=== PATIENT | female | born 1930 | race Caucasian/White ===

== ENCOUNTER 2018-08-12 10:25 | Inpatient (IN) | payer MEDICARE, MEDICAID ==
[~2018-08-12] VITALS: Ht 167.6 cm; Wt 68.0 kg
[~2018-08-12 10:25] MED LIST: ACCOLATE20 M1 ORAL; ALENDRONATE SOD70 MG ORAL; ASPIR 8181 MG ORAL; CALCIUM + VITA1 EAC1 PO; CARDIZEM CD120 MG ORAL; COLACE100 MG ORAL; DITROPAN XL10 MG ORAL; FERROUS SULFAT325 MG ORAL; HYDROCHLOROTHIA25 MG ORAL; NIFEDICAL XL60 MG ORAL; POTASSIUM 25 M25 ME1 PO; RISPERIDONE2 MG/2 ML PO; SIMVASTATIN40 MG ORAL
[2018-08-12 10:40] VITALS: BP 151/94
--- NOTE | 2018-08-12 10:55 | Emergency Room Report ---
History of Present Illness General Chief Complaint: General Complaint Source: EMS Present Illness HPI Patient sent in for G-tube insertion. Apparently her NG tube came out. She was placed on 2 L at some point. There is a history of COPD. The patient is unable to give a history. Patient last admitted in 2013. Discharge diagnoses: 1. Acute cholecystitis. 2. Obstructive jaundice, improved. 3. PVCs likely right ventricular outflow tract etiology. 4. Hypertensive heart disease. 5. Negative nuclear scan for cardiac ischemia. 6. History of cognitive impairment. 7. History of psychiatric disorder. Allergies: Coded Allergies: PENICILLINS (Unverified Allergy, Unknown, 12/20/13) Patient History Limited by: medical condition Past Medical History: see triage record, old chart reviewed Social History Narrative half-way facility Now: No Reviewed Nursing Documentation: PMH: Agreed; PSxH: Agreed Nursing Documentation-PMH Hx Cardiac Problems: Yes Hx Hypertension: Yes - hyperlipidemia Hx Pacemaker: No - ANEMIA, FALL, OSTEOPOROSIS, OBESITY Hx Asthma: Yes Hx COPD: Yes Hx Cancer: No History Of Psychiatric Problem: Yes - schizophrenia Hx Dementia: Yes Review of Systems All Other Systems: limited Physical Exam Vital Signs Date Time Temp Pulse Resp B/P (MAP) Pulse Ox O2 Delivery O2 Flow Rate FiO2 08/12/18 10:18 98.4 113 26 196/94 96 Room Air Sp02 EP Interpretation: reviewed, normal General Appearance: lethargic, Chronically Ill Head: normocephalic Eyes: bilateral eye normal inspection, bilateral eye PERRL ENT: moist mucus membranes Neck: supple Respiratory: respiratory distress - Mild, decreased breath sounds Cardiovascular #1: regular rate, rhythm, no edema Cardiovascular #2: 2+ radial (R) Gastrointestinal: normal inspection, non tender, no mass, non-distended, decreased bowel sounds Musculoskeletal: decreased range of motion Neurologic: motor weakness - Diffuse but possibly greater on the right, sensory deficit, other - Minimally responsive Psychiatric: other - Not respond to painful stimuli lethargy Skin: warm/dry, other - Right eyebrow ecchymoses which is billiverdin Medical Decision Making Diagnostic Impression: Primary Impression: Bilateral pneumonia Qualified Codes: J18.9 - Pneumonia, unspecified organism Additional Impressions: UTI (urinary tract infection) Qualified Codes: N39.0 - Urinary tract infection, site not specified NG tube failure Failure to thrive Qualified Codes: R62.7 - Adult failure to thrive ER Course Patient presented for evaluation for G-tube placement. However on her evaluation she is hypoxemic and dyspneic. Differential includes acute myocardial infarction, pulmonary embolus, pneumonia, exacerbation of COPD. She' ll be evaluated with EKG, chest x-ray and labs including blood cultures and lactate. She's a complex patient that she is unable to give a history. She'll be treated with breathing treatments, oxygen IV hydration. Depending on x-ray and laboratory she may need to have antibiotics started. EKG with ST. Chest x-ray with bilateral infiltrates -also increased markings right upper lobe. White count elevated. CMP unremarkable. Lactic acid normal. Urinalysis with pyuria. Slight improved mentation with breathing treatment. Antibiotics begun to cover pneumonia and urinary tract infection. Discussed with conservator. The only have jurisdiction over psychiatric medication use. Discussion with our social sciences lecturer and covering physician regarding this in relation to possibly placing gastrostomy tube. drug abuse worker states that 2 physicians could ascertain if medical emergency to perform gastrostomy tube placement. Patient admitted to medical floor. Dr. Scruggs covering for Dr. Mistry. He came and evaluated the patient in the emergency department. Laboratory Tests Test 08/12/18 10:29 08/12/18 10:45 08/12/18 11:00 White Blood Count 12.3 K/UL (4.8-10.8) H Red Blood Count 5.78 M/UL (4.20-5.40) H Hemoglobin 15.7 G/DL (12.0-16.0) Hematocrit 47.1 % (37.0-47.0) H Mean Corpuscular Volume 81 FL (80-99) Mean Corpuscular Hemoglobin 27.2 PG (27.0-31.0) Mean Corpuscular Hemoglobin Concent 33.4 G/DL (32.0-36.0) Red Cell Distribution Width 13.3 % (11.6-14.8) Platelet Count 239 K/UL (150-450) Mean Platelet Volume 9.9 FL (6.5-10.1) Neutrophils (%) (Auto) % (45.0-75.0) Lymphocytes (%) (Auto) % (20.0-45.0) Monocytes (%) (Auto) % (1.0-10.0) Eosinophils (%) (Auto) % (0.0-3.0) Basophils (%) (Auto) % (0.0-2.0) Differential Total Cells Counted 100 Neutrophils % (Manual) 81 % (45-75) H Lymphocytes % (Manual) 15 % (20-45) L Monocytes % (Manual) 4 % (1-10) Eosinophils % (Manual) 0 % (0-3) Basophils % (Manual) 0 % (0-2) Band Neutrophils 0 % (0-8) Platelet Estimate Adequate Platelet Morphology Normal Red Blood Cell Morphology Normal Prothrombin Time 10.7 SEC (9.30-11.50) Prothrombin Time INR 1.0 (0.9-1.1) PTT 27 SEC (23-33) Sodium Level 138 MMOL/L (136-145) Potassium Level 3.8 MMOL/L (3.5-5.1) Chloride Level 98 MMOL/L (98-107) Carbon Dioxide Level 30 MMOL/L (21-32) Anion Gap 10 mmol/L (5-15) Blood Urea Nitrogen 18 mg/dL (7-18) Creatinine 0.6 MG/DL (0.55-1.30) Estimate Glomerular Filtration Rate mL/min (>60) Glucose Level 151 MG/DL (74-106) H Lactic Acid Level 1.30 mmol/L (0.4-2.0) Calcium Level 9.9 MG/DL (8.5-10.1) Total Bilirubin 0.6 MG/DL (0.2-1.0) Aspartate Amino Transferase (AST) 25 U/L (15-37) Alanine Aminotransferase (ALT) 20 U/L (12-78) Alkaline Phosphatase 106 U/L (46-116) Total Creatine Kinase 233 U/L (26-308) Troponin I 0.000 ng/mL (0.000-0.056) Pro-B-Type Natriuretic Peptide 653 pg/mL (0-125) H Total Protein 8.9 G/DL (6.4-8.2) H Albumin 3.5 G/DL (3.4-5.0) Globulin 5.4 g/dL Albumin/Globulin Ratio 0.6 (1.0-2.7) L Urine Color Yellow Urine Appearance Cloudy Urine pH 6 (4.5-8.0) Urine Specific [place] 1.020 (1.005-1.035) Urine Protein 3+ (NEGATIVE) H Urine Glucose (UA) Negative (NEGATIVE) Urine Ketones 3+ (NEGATIVE) H Urine Blood 2+ (NEGATIVE) H Urine Nitrite Negative (NEGATIVE) Urine Bilirubin Negative (NEGATIVE) Urine Urobilinogen 1 MG/DL (0.0-1.0) H Urine Leukocyte Esterase 1+ (NEGATIVE) H Urine RBC 2-4 /HPF (0 - 2) H Urine WBC 5-10 /HPF (0 - 2) H Urine Squamous Epithelial Cells Few /LPF (NONE/OCC) Urine Bacteria Many /HPF (NONE) H EKG Diagnostic Results Rate: tachycardiac ST Segments: no acute changes Rhythm Strip Diag. Results EP Interpretation: yes Rhythm: no PVC's, no ectopy, other - Sinus tachycardia Chest X-Ray Diagnostic Results Chest X-Ray Diagnostic Results : Chest X-Ray Ordered: Yes # of Views/Limited/Complete: 1 View Indication: Shortness of Breath EP Interpretation: Yes Interpretation: no effusion, no pneumothorax, other - bilat infiltrates Impression: Other Electronically Signed by: Electronically signed by Daniel Zafar MD Last Vital Signs Date Time Temp Pulse Resp B/P (MAP) Pulse Ox O2 Delivery O2 Flow Rate FiO2 08/12/18 17:52 179/88 08/12/18 16:40 Nasal Cannula 1.0 08/12/18 16:30 98.2 107 20 95 08/12/18 11:08 28 Status: improved Disposition: ADMITTED INPATIENT Condition: Serious Referrals: Reinaldo Mistry MD (PCP) Daniel Zafar MD Aug 12, 2018 10:55
[2018-08-12] MEDS ORDERED: Albuterol ud Inhalation HHN ONE (11:00)
[2018-08-12] MEDS ORDERED: Ipratropium 0.02% Inh Soln 2.5ml UD HHN ONE (11:00)
[2018-08-12 11:24] LABS: ANION GAP 10 mmol/L (5-15); BLOOD UREA NITROGEN 18 mg/dL (7-18); CALCIUM 9.9 MG/DL (8.5-10.1); CARBON DIOXIDE 30 MMOL/L (21-32); CHLORIDE 98 MMOL/L (98-107); CREATININE 0.6 MG/DL (0.55-1.30); POTASSIUM 3.8 MMOL/L (3.5-5.1); SODIUM 138 MMOL/L (136-145)
[2018-08-12 11:34] LABS: ALANINE AMINOTRANSFERASE 20 U/L (12-78); ALBUMIN 3.5 G/DL (3.4-5.0); ALBUMIN/GLOBULIN RATIO 0.6 (1.0-2.7); ALKALINE PHOSPHATASE 106 U/L (46-116); ASPARTATE AMINO TRANSFERASE 25 U/L (15-37); BILIRUBIN,TOTAL 0.6 MG/DL (0.2-1.0); CREATINE KINASE 233 U/L (26-308)
[2018-08-12 11:41] LABS: HEMATOCRIT 47.1 % (37.0-47.0); HEMOGLOBIN 15.7 G/DL (12.0-16.0); MEAN CORPUSCULAR VOLUME 81 FL (80-99); PLATELET COUNT 239 K/UL (150-450); RED BLOOD COUNT 5.78 M/UL (4.20-5.40); RED CELL DISTRIBUTION WIDTH 13.3 % (11.6-14.8); WHITE BLOOD COUNT 12.3 K/UL (4.8-10.8)
[2018-08-12] MEDS ORDERED: Cefepime HCl 1 GM in D5W 55 ML IVPB ONE (11:45)
[2018-08-12 12:10] LABS: APPEARANCE,URINE CLOUDY; BILIRUBIN, URINE NEGATIVE (NEGATIVE); GLUCOSE, URINE (UA) NEGATIVE (NEGATIVE); KETONES,URINE 3+ (NEGATIVE); LEUKOCYTE ESTERASE ,URINE 1+ (NEGATIVE); NITRITE,URINE NEGATIVE (NEGATIVE); PH,URINE 6 (4.5-8.0); PROTEIN,URINE 3+ (NEGATIVE); UROBILINOGEN,URINE 1 MG/DL (0.0-1.0)
[2018-08-12 12:11] LABS: COLOR,URINE YELLOW
[2018-08-12 12:30] VITALS: BP 178/81
--- NOTE | 2018-08-12 14:13 | Diagnostic Imaging Report ---
Indication: Shortness of breath Technique: One view of the chest Comparison: 12/20/2013 Findings: The heart is mildly enlarged. There is bilateral interstitial edema. There are also patchy focal airspace opacities. Opacity in the left lung base most likely represents some focal consolidation, but mass lesion is also possible. The pleural spaces are grossly clear. Surgical clips are seen in the right upper quadrant. Somewhat distended colon is noted There are degenerative changes of the bilateral shoulders. There is extensive contour abnormality of both humeral head and necks; uncertain as to whether due to degenerative remodeling, prior trauma, or both Impression: Cardiomegaly Bilateral interstitial edema. There are also patchy airspace opacities. Opacity in the left upper lobe probably represents focal infiltrate, but underlying mass lesion also possible and follow-up to resolution is recommended Findings discussed by phone with Dr. Zafar in the emergency room at the time of interpretation
[2018-08-12 15:00] VITALS: BP 158/79
[2018-08-12] MEDS ORDERED: Albuterol/Ipratropium 3ml neb HHN PRN (15:00)
--- NOTE | 2018-08-12 16:00 | Infectious Diseases Prog Note ---
Assessment/Plan Assessment/Plan Full consult dictated: A) 1) pneumonia, aspiration risk, ? HCAP risk, ? CAP with bilateral process 2) possible uti, + ua 3) sepsis, leukocytosis, sirs + , ams 4) pmh noted 5) allergies - nkda P) 1) levofloxacin and cefepime, add flagyl with aspiration risk factors 2) check cultures, labs and chest x-ray, check serology for mycoplasma and legionella 3) d/w Dr. Lemus 4) thank you Subjective Allergies: Coded Allergies: PENICILLINS (Unverified Allergy, Unknown, 12/20/13) Objective Vital Signs Last 24 Hour Vital Signs Date Time Temp Pulse Resp B/P (MAP) Pulse Ox O2 Delivery O2 Flow Rate FiO2 08/12/18 12:30 98.5 118 22 178/81 97 Nasal Cannula 1.0 08/12/18 11:08 112 20 99 Nasal Cannula 2.0 28 08/12/18 11:02 115 22 Nasal Cannula 2.0 28 08/12/18 10:58 116 22 99 Nasal Cannula 2.0 28 08/12/18 10:40 98.4 116 23 151/94 97 Room Air 08/12/18 10:28 113 26 Room Air 08/12/18 10:18 98.4 113 26 196/94 96 Room Air Height (Feet): 5 Height (Inches): 6.00 Weight (Pounds): 150 Microbiology Date/Time Source Procedure Growth Status 08/12/18 11:00 Rectum Received Laboratory Tests Test 08/12/18 10:29 08/12/18 10:45 08/12/18 11:00 White Blood Count 12.3 K/UL (4.8-10.8) H Red Blood Count 5.78 M/UL (4.20-5.40) H Hemoglobin 15.7 G/DL (12.0-16.0) Hematocrit 47.1 % (37.0-47.0) H Mean Corpuscular Volume 81 FL (80-99) Mean Corpuscular Hemoglobin 27.2 PG (27.0-31.0) Mean Corpuscular Hemoglobin Concent 33.4 G/DL (32.0-36.0) Red Cell Distribution Width 13.3 % (11.6-14.8) Platelet Count 239 K/UL (150-450) Mean Platelet Volume 9.9 FL (6.5-10.1) Neutrophils (%) (Auto) % (45.0-75.0) Lymphocytes (%) (Auto) % (20.0-45.0) Monocytes (%) (Auto) % (1.0-10.0) Eosinophils (%) (Auto) % (0.0-3.0) Basophils (%) (Auto) % (0.0-2.0) Differential Total Cells Counted 100 Neutrophils % (Manual) 81 % (45-75) H Lymphocytes % (Manual) 15 % (20-45) L Monocytes % (Manual) 4 % (1-10) Eosinophils % (Manual) 0 % (0-3) Basophils % (Manual) 0 % (0-2) Band Neutrophils 0 % (0-8) Platelet Estimate Adequate Platelet Morphology Normal Red Blood Cell Morphology Normal Prothrombin Time 10.7 SEC (9.30-11.50) Prothromb Time International Ratio 1.0 (0.9-1.1) Activated Partial Thromboplast Time 27 SEC (23-33) Sodium Level 138 MMOL/L (136-145) Potassium Level 3.8 MMOL/L (3.5-5.1) Chloride Level 98 MMOL/L (98-107) Carbon Dioxide Level 30 MMOL/L (21-32) Anion Gap 10 mmol/L (5-15) Blood Urea Nitrogen 18 mg/dL (7-18) Creatinine 0.6 MG/DL (0.55-1.30) Estimat Glomerular Filtration Rate mL/min (>60) Glucose Level 151 MG/DL (74-106) H Lactic Acid Level 1.30 mmol/L (0.4-2.0) Calcium Level 9.9 MG/DL (8.5-10.1) Total Bilirubin 0.6 MG/DL (0.2-1.0) Aspartate Amino Transf (AST/SGOT) 25 U/L (15-37) Alanine Aminotransferase (ALT/SGPT) 20 U/L (12-78) Alkaline Phosphatase 106 U/L (46-116) Total Creatine Kinase 233 U/L (26-308) Troponin I 0.000 ng/mL (0.000-0.056) Pro-B-Type Natriuretic Peptide 653 pg/mL (0-125) H Total Protein 8.9 G/DL (6.4-8.2) H Albumin 3.5 G/DL (3.4-5.0) Globulin 5.4 g/dL Albumin/Globulin Ratio 0.6 (1.0-2.7) L Urine Color Yellow Urine Appearance Cloudy Urine pH 6 (4.5-8.0) Urine Specific [place] 1.020 (1.005-1.035) Urine Protein 3+ (NEGATIVE) H Urine Glucose (UA) Negative (NEGATIVE) Urine Ketones 3+ (NEGATIVE) H Urine Blood 2+ (NEGATIVE) H Urine Nitrite Negative (NEGATIVE) Urine Bilirubin Negative (NEGATIVE) Urine Urobilinogen 1 MG/DL (0.0-1.0) H Urine Leukocyte Esterase 1+ (NEGATIVE) H Urine RBC 2-4 /HPF (0 - 2) H Urine WBC 5-10 /HPF (0 - 2) H Urine Squamous Epithelial Cells Few /LPF (NONE/OCC) Urine Bacteria Many /HPF (NONE) H Current Medications Medications (Trade) Dose Ordered Sig/Eveline Route PRN Reason Start Time Stop Time Status Last Admin Dose Admin Albuterol/ Ipratropium (Albuterol/ Ipratropium) 3 ml QIDPRN PRN HHN Shortness of Breath 08/12/18 15:00 08/17/18 14:59 Dextrose (Dextrose 50%) 25 ml Q30M PRN IV Hypoglycemia 08/12/18 15:00 09/11/18 14:59 Dextrose (Dextrose 50%) 50 ml Q30M PRN IV Hypoglycemia 08/12/18 15:00 09/11/18 14:59 Dextrose/Sodium Chloride 1,000 ml @ 50 mls/hr Q20H IV 08/12/18 15:56 09/11/18 15:55 Enoxaparin Sodium (Lovenox) 40 mg DAILY SUBQ 08/13/18 09:00 09/12/18 08:59 Metoprolol Tartrate (Lopressor) 5 mg Q4HR IVP 08/12/18 17:00 09/11/18 16:59 UNV Sodium Chloride 1,000 ml @ 300 mls/hr Q3H20M IV 08/12/18 10:30 09/11/18 10:29 08/12/18 14:42 Jarrod Lopes MD Aug 12, 2018 16:00
[2018-08-12 16:30] VITALS: BP 179/88
[2018-08-12] MEDS ORDERED: Metoprolol 5mg/5ml Inj IVP SCH (17:00)
[2018-08-12] MEDS: Enalaprilat 2.5mg/2ml Inj IV SCH (17:52)
[2018-08-12] MEDS: D5 1/2NS 1,000 ML IV SCH (17:53)
[2018-08-12 20:00] VITALS: BP 162/76
[2018-08-12] MEDS ORDERED: Cefepime HCl 1 GM in D5W 55 ML IVPB SCH (21:00)
--- NOTE | 2018-08-12 23:15 | History and Physical Report ---
DATE OF ADMISSION: 08/12/2018 REASON FOR ADMISSION: 1. Pneumonia. 2. Urinary tract infection. 3. Acute encephalopathy. HISTORY OF PRESENT ILLNESS: The patient is an 87-year-old female, who had presented to the emergency room for question of G-tube insertion. Apparently, the patient had an NG-tube that had been placed and been self removed. The patient is not answering any questions. Emergency room physician has reached out to the conservator to address the possible insertion of a G-tube. She has Full Code at this time. In the emergency room, the patient is noted to have a urinary tract infection, chronic obstructive pulmonary disease exacerbation, and bilateral pneumonia. No further history could be obtained as the patient is noncommunicative. PAST MEDICAL HISTORY: 1. Osteoporosis. 2. Hypertension. 3. Bladder dysfunction. 4. Hyperlipidemia. 5. Schizophrenia. 6. COPD. ALLERGIES: Penicillin. FAMILY HISTORY: Positive for hypertension. PAST SURGICAL HISTORY: Unclear. REVIEW OF SYSTEMS: Cannot obtain as the patient is not verbalizing to any questions. LABORATORY DATA: Laboratories dated 06/14/2018, positive urinary tract infection. White count 12.3, hemoglobin 15.7, and platelet count 239,000. Sodium 138, potassium 3.8, BUN 18, creatinine 0.6, and glucose 151. PHYSICAL EXAM: VITAL SIGNS: Blood pressure 178/81, pulse ox 97, respiratory rate 22, pulse 118, and temperature 98.5. GENERAL: The patient is awake, slightly agitated, and not very communicative. HEENT: Extraocular muscles intact. No lymphadenopathy noted. CARDIOVASCULAR: S1, S2. No rubs or gallops. PULMONARY: Diffuse upper airway rhonchi with basilar rales. ABDOMEN: Nondistended and nontender. EXTREMITIES: No overt edema noted. ASSESSMENT AND PLAN: 1. Sepsis secondary to urinary tract infection and pneumonia. The patient had received cefepime and Levaquin in the emergency room. Infectious Disease has been consulted for further evaluation and management of antibiotic therapy going forward. 2. Pneumonia and urinary tract infection. Continue antibiotic course therapy with Levaquin and cefepime until evaluated by Infectious Disease. 3. Hypertension. At this time, the patient has no oral access to any medications. NG-tube had been withdrawn. pit worker power shovel has been contacted to address the possibility of a G-tube placement. At this time, we will hydrate the patient and use intravenous medications. 4. DVT prophylaxis with Lovenox subcutaneous. 5. The patient is Full Code. At this time, conservator is trying to be reached to address G-tube, possibility of placement. At this time, we will consult Gastroenterology for G-tube once consent has been given. Cory Lemus MD DR: ISAMAR JOB#: [id number] CC:
[2018-08-13] VITALS: BP 140/58
[2018-08-13] MEDS: Cefepime HCl 2 GM in D5W 55 ML IV SCH ×2 (00:07→11:36)
--- NOTE | 2018-08-13 02:00 | Consultation ---
DATE OF CONSULTATION: 08/12/2018 INFECTIOUS DISEASE CONSULTATION CONSULTING PHYSICIAN: Jarrod Swanson M.D. ATTENDING PHYSICIAN: Reinaldo Mistry M.D. REFERRING PHYSICIAN: Cory Lemus M.D. REASON FOR CONSULTATION: Pneumonia, possible sepsis, leukocytosis, and possible UTI. CHIEF COMPLAINT: The patient's chief complaint coming in to the hospital is failure to thrive. HISTORY OF PRESENT ILLNESS: This is an 87-year-old female, who comes in to [facility] with failure to thrive. The patient is a poor historian. She has history of dementia. It looks like she came in with removal of feeding tube. Then, she comes in for G-tube insertion because of the failure to thrive. Workup shows that she has a pneumonia and also looks like urinary tract infection with elevated white count and possible sepsis. She does have positive SIRS criteria with elevated heart rate and respiratory rate and altered mental status. Infectious Disease consultation was requested for antibiotic management. She was given Levaquin and cefepime in the emergency room where she tolerated the cefepime despite her penicillin allergy. Cultures at this time pending. Imaging was noted. Case was discussed with Dr. Lemus. Infectious Disease consultation was requested for antibiotic management in this patient. The patient was continued on antibiotics, cefepime and Levaquin and I have also added Flagyl. MAR was noted. Orders were noted. Notes and records were reviewed. Case discussed with the RN also. REVIEW OF SYSTEMS: CONSTITUTIONAL: The patient is a very poor historian/nonverbal. I do not see a central line. No Real. HEAD AND NECK: Limited. Cannot really be assessed. CARDIAC: She has no pressors. She has tachycardia. GENITOURINARY: She has no Real. PULMONARY: She has cough and congestion. No significant secretions noted. GASTROINTESTINAL: No nausea, vomiting, or diarrhea. SKIN: No rash noted. EXTREMITY: Could not assess. NEUROLOGIC: No seizures. She is otherwise lethargic. Poorly responsive. Nonverbal. NEUROLOGIC: Generalized weakness. No fevers or pressors currently. Review of systems is otherwise limited. PAST MEDICAL HISTORY: The patient's past medical history includes the following. The patient has past medical history of failure to thrive. She has a history of feeding tube. She has history of failure to thrive. She also has other past medical history of cardiac disease. She has history of hyperlipidemia or dyslipidemia. She has history of asthma, history of chronic obstructive pulmonary disease, history of schizophrenia, history of dementia, history of falls, osteoporosis, and obesity. History of hypertension and hyperlipidemia. No history of diabetes mentioned. MEDICATIONS: Upon reviewing the MAR, she is on the following medications. She is on Levaquin and cefepime. I have added Flagyl. She is on metoprolol. She is on albuterol. She is on IV fluids. Outside medications were noted and reconciliated. She is on diltiazem, aspirin, alendronate, ferrous sulfate, hydrochlorothiazide, potassium, risperidone, oxybutynin, simvastatin, and Accolate. ALLERGIES: Include penicillin. She tolerates cefepime and cephalosporins. FAMILY HISTORY: Noncontributory. There is no mention of exposure to tuberculosis or cancer. SOCIAL HISTORY: Negative for smoking, alcohol, or drug abuse. PHYSICAL EXAMINATION: VITAL SIGNS: Temperature is 98.5, pulse rate is 118, respiratory rate as high as 26, blood pressure 178/81, and saturation 97% on 1 liter nasal cannula. GENERAL: Weak and lethargic. HEAD AND NECK: Oral exam, no thrush. Eye exam, no icterus. Normocephalic. Neck is supple. No JVD. HEART: Regular. No obvious gallop or murmur. Tachycardic. ABDOMEN: Soft. Positive bowel sounds. Really could not assess tenderness. LUNGS: Bilateral rhonchi, rales, and crackles. SKIN: No rash. MUSCULOSKELETAL: No effusions. Legs are without cellulitis. PERIPHERAL VASCULAR: No cyanosis. GENITOURINARY: I do not see a Real. LINES: Line sites without phlebitis. I do not see a central line. NEUROLOGIC: Generalized weakness. Poorly responsive. LABORATORY AND DIAGNOSTIC DATA: Laboratory data is as follows. White count 12.3 and hemoglobin 15.7. Creatinine is 0.6. Urine had 1+ leukocyte esterase, 5 to 10 white blood cells, and many bacteria. CULTURES: Include sputum and urine and blood are pending. I have ordered mycoplasma and Legionella titers. IMAGING: Chest x-ray shows the following: It was noted and reviewed. It shows patchy airspace opacities, opacity in the left upper lobe, probably is a focal infiltrate. She also has bilateral interstitial edema. ASSESSMENT/PLAN: 1. The patient looks like she has pneumonia with possible urinary tract infection and also elevated white count, respiratory rate, heart rate, and SIRS criteria with possible sepsis, and altered mental status. The pneumonia also appear to be a bilateral process, however, she has high risk for aspiration pneumonia and also healthcare-acquired pneumonia because she has a history of dementia and comes from an ECF. At this time, I would continue the cefepime and Levaquin. This will have excellent gram-negative coverage and also has community-acquired pneumonia coverage. There is atypical pathogens involved such as Legionella mycoplasma. In addition, I would add Flagyl to the cefepime and Levaquin for aspiration coverage and anaerobic coverage. Continue antibiotics cefepime, Levaquin, and Flagyl. Check urine culture, blood cultures, and sputum culture. Followup laboratories and chest x-ray. Continue treatment for pneumonia, sepsis, and urinary tract infection pending final work. 2. The patient has history of cardiac disease. It is unclear what type it is. She is tachycardic. 3. The patient has history of hypertension. Blood pressure treatment per Dr. Lemus. 4. Hyperlipidemia or dyslipidemia. 5. Anemia. 6. Falls. 7. Osteoporosis. 8. Obesity. 9. Asthma. 10. COPD. 11. Schizophrenia. 12. Dementia. 13. Aspiration risk. 14. Tachycardia. 15. Past medical history is as noted. 16. Allergies to penicillin. Tolerates cephalosporins. 17. Social history is negative. 18. Family history is noncontributory. 19. MAR was noted. 20. Case was discussed with RN. 21. Case was discussed with Dr. Lemus. 22. Continue treatment per primary consultants. 23. Notes and records were noted. 24. Orders were entered. Jarrod Lopes M.D. DR: CARRIE JOB#: [id number] CC:
[2018-08-13 04:00] VITALS: BP 135/71
[2018-08-13] MEDS: Enalaprilat 2.5mg/2ml Inj IV SCH ×4 (06:00→17:39)
[2018-08-13 07:36] LABS: BASOPHILS % (AUTO) 1.3 % (0.0-2.0); EOSINOPHILS % (AUTO) 2.1 % (0.0-3.0); HEMATOCRIT 40.4 % (37.0-47.0); HEMOGLOBIN 13.4 G/DL (12.0-16.0); LYMPHOCYTES % (AUTO) 10.3 % (20.0-45.0); MEAN CORPUSCULAR VOLUME 83 FL (80-99); MONOCYTES % (AUTO) 8.4 % (1.0-10.0); PLATELET COUNT 177 K/UL (150-450); RED BLOOD COUNT 4.86 M/UL (4.20-5.40); RED CELL DISTRIBUTION WIDTH 13.8 % (11.6-14.8); WHITE BLOOD COUNT 9.2 K/UL (4.8-10.8)
--- NOTE | 2018-08-13 07:40 | Nephrology Progress Note ---
Assessment/Plan Assessment/Plan A/P 1) Sepsis- UIT/PNA - WBC improved - Abx per ID 2) FTT- awaiting GTube on Wednesday 3) DVT Prophylaxsis with lovenox 4) HTN - IV enalapril Subjective Date patient seen: Aug 13, 2018 Time patient seen: 07:38 ROS Limited/Unobtainable: Yes Allergies: Coded Allergies: PENICILLINS (Unverified Allergy, Unknown, 12/20/13) Subjective Patient awake, more alert, nonverbal Objective Last 24 Hour Vital Signs Date Time Temp Pulse Resp B/P (MAP) Pulse Ox O2 Delivery O2 Flow Rate FiO2 08/13/18 06:00 135/71 08/13/18 00:00 98.3 79 20 140/58 (85) 98 08/13/18 00:00 140/58 08/12/18 21:00 Nasal Cannula 2.0 08/12/18 20:00 98.5 98 20 162/76 (104) 97 08/12/18 17:52 179/88 08/12/18 16:40 Nasal Cannula 1.0 08/12/18 16:30 98.2 107 20 179/88 (118) 95 08/12/18 16:14 98.4 19 22 152/80 100 Nasal Cannula 1.0 08/12/18 15:00 98.1 108 20 158/79 98 Nasal Cannula 1.0 08/12/18 12:30 98.5 118 22 178/81 97 Nasal Cannula 1.0 08/12/18 11:08 112 20 99 Nasal Cannula 2.0 28 08/12/18 11:02 115 22 Nasal Cannula 2.0 28 08/12/18 10:58 116 22 99 Nasal Cannula 2.0 28 08/12/18 10:40 98.4 116 23 151/94 97 Room Air 08/12/18 10:28 113 26 Room Air 08/12/18 10:18 98.4 113 26 196/94 96 Room Air Intake and Output 08/12/18 08/13/18 18:59 06:59 Intake Total 2355 ml Output Total 150 ml Balance 2205 ml Intake IV Total 2355 ml Output Urine Total 150 ml # Voids 1 # Bowel Movements 1 1 Laboratory Tests 08/12/18 10:29: White Blood Count 12.3H, Red Blood Count 5.78H, Hemoglobin 15.7, Hematocrit 47.1H, Mean Corpuscular Volume 81, Mean Corpuscular Hemoglobin 27.2, Mean Corpuscular Hemoglobin Concent 33.4, Red Cell Distribution Width 13.3, Platelet Count 239, Mean Platelet Volume 9.9, Neutrophils (%) (Auto) , Lymphocytes (%) ( Auto) , Monocytes (%) (Auto) , Eosinophils (%) (Auto) , Basophils (%) (Auto) , Differential Total Cells Counted 100, Neutrophils % (Manual) 81H, Lymphocytes % (Manual) 15L, Monocytes % (Manual) 4, Eosinophils % (Manual) 0, Basophils % ( Manual) 0, Band Neutrophils 0, Platelet Estimate Adequate, Platelet Morphology Normal, Red Blood Cell Morphology Normal 08/12/18 10:45: Prothrombin Time 10.7, Prothromb Time International Ratio 1.0, Activated Partial Thromboplast Time 27, Sodium Level 138, Potassium Level 3.8, Chloride Level 98, Carbon Dioxide Level 30, Anion Gap 10, Blood Urea Nitrogen 18, Creatinine 0.6, Estimat Glomerular Filtration Rate , Glucose Level 151H, Lactic Acid Level 1.30, Calcium Level 9.9, Total Bilirubin 0.6, Aspartate Amino Transf (AST/SGOT) 25, Alanine Aminotransferase (ALT/SGPT) 20, Alkaline Phosphatase 106 , Total Creatine Kinase 233, Troponin I 0.000, Pro-B-Type Natriuretic Peptide 653H, Total Protein 8.9H, Albumin 3.5, Globulin 5.4, Albumin/Globulin Ratio 0.6L 08/12/18 11:00: Urine Color Yellow, Urine Appearance Cloudy, Urine pH 6, Urine Specific [place] 1.020, Urine Protein 3+H, Urine Glucose (UA) Negative, Urine Ketones 3+H, Urine Blood 2+H, Urine Nitrite Negative, Urine Bilirubin Negative, Urine Urobilinogen 1H, Urine Leukocyte Esterase 1+H, Urine RBC 2-4H, Urine WBC 5-10H, Urine Squamous Epithelial Cells Few, Urine Bacteria ManyH 08/12/18 11:29: Mycoplasma pneumoniae IgG Antibody [Pending], Mycoplasma pneumoniae IgM Ab Titer [Pending] 08/12/18 18:30: Urine Legionella Antigen [Pending] 08/13/18 05:35: White Blood Count 9.2, Red Blood Count 4.86, Hemoglobin 13.4, Hematocrit 40.4, Mean Corpuscular Volume 83, Mean Corpuscular Hemoglobin 27.6, Mean Corpuscular Hemoglobin Concent 33.2, Red Cell Distribution Width 13.8, Platelet Count 177, Mean Platelet Volume 9.6, Neutrophils (%) (Auto) 78.0H, Lymphocytes (%) (Auto) 10.3L, Monocytes (%) (Auto) 8.4, Eosinophils (%) (Auto) 2.1, Basophils (%) (Auto ) 1.3, Sodium Level [Pending], Potassium Level [Pending], Chloride Level [ Pending], Carbon Dioxide Level [Pending], Blood Urea Nitrogen [Pending], Creatinine [Pending], Estimat Glomerular Filtration Rate [Pending], Glucose Level [Pending], Calcium Level [Pending] Height (Feet): 5 Height (Inches): 6.00 Weight (Pounds): 150 General Appearance: agitated EENT: normal ENT inspection Neck: normal alignment, supple Cardiovascular: normal rate, regular rhythm Respiratory/Chest: crackles/rales Abdomen: non tender, soft Edema: no edema noted Arm (L), no edema noted Arm (R), no edema noted Leg (L), no edema noted Leg (R), no edema noted Pedal (L), no edema noted Pedal (R), no edema noted Generalized Cory Lemus MD Aug 13, 2018 07:40
[2018-08-13 08:00] VITALS: BP 138/77
[2018-08-13 08:12] LABS: ANION GAP 9 mmol/L (5-15); BLOOD UREA NITROGEN 12 mg/dL (7-18); CALCIUM 8.5 MG/DL (8.5-10.1); CARBON DIOXIDE 28 MMOL/L (21-32); CHLORIDE 102 MMOL/L (98-107); CREATININE 0.6 MG/DL (0.55-1.30); POTASSIUM 3.5 MMOL/L (3.5-5.1); SODIUM 139 MMOL/L (136-145)
[2018-08-13] MEDS: Enoxaparin 40mg Inj SUBQ SCH (08:37)
--- NOTE | 2018-08-13 09:06 | Diagnostic Imaging Report ---
EXAM: XR Chest, 1 View. CLINICAL HISTORY: Infection TECHNIQUE: Frontal view of the chest. COMPARISON: 08/12/18 at 1128 hrs. FINDINGS: Lungs: Again seen are prominent interstitial markings throughout both lungs, likely associated with interstitial edema. This appears unchanged to slightly improved since the prior exam performed yesterday. No definite airspace consolidation. Pleural spaces: No significant pleural effusions. No evidence of pneumothorax. Heart: Cardiac silhouette is within normal limits. Mediastinum: No mediastinal widening or shift. Bones: No acute fracture. IMPRESSION: Pulmonary edema, unchanged to slightly improved. No airspace consolidation or pneumothorax.
[2018-08-13] MEDS ORDERED: D5 1/2NS 1000ml IV ONE (10:46)
[2018-08-13] MEDS: NovoLOG Insulin Flexpen SUBQ SCH ×3 (11:35→21:00)
[2018-08-13] MEDS: D5 1/2NS 1,000 ML IV SCH (11:36)
[2018-08-13 12:00] VITALS: BP_SYST 140; BP_SYST 159; BP_DIAS 78; BP_DIAS 86
--- NOTE | 2018-08-13 12:45 | Consultation ---
DATE OF CONSULTATION: 08/13/2018 PULMONARY CONSULTATION CONSULTING PHYSICIAN: Babar Sevilla M.D. REFERRING PHYSICIAN: Cory Lemus M.D. REASON FOR CONSULT: Pneumonia. HISTORY OF PRESENT ILLNESS: This is an 87-year-old female, who came to the hospital for need of a G-tube insertion. The patient apparently had an NG that had been self removed. The patient at this time is not able to answer any question. Her workup is also notable for pneumonia as well as UTI. PAST HISTORY: Osteoporosis, hypertension, thyroid dysfunction, hyperlipidemia, COPD, and schizophrenia. ALLERGIES: Penicillin. PAST SURGICAL HISTORY: None known. REVIEW OF SYSTEMS: Not obtainable. PHYSICAL EXAMINATION: GENERAL: Reveals elderly female, poorly responsive. HEENT: Unremarkable. CHEST: Clear breath sounds bilaterally with few basilar crackles. ABDOMEN: Soft. EXTREMITIES: There is no edema. NEUROLOGIC: Nonfocal. LABORATORY DATA: Lab testing shows white count 12.3, hemoglobin 11.2. Chemistries are normal. Urinalysis shows 5 to 10 wbc. Coags are negative. Serologies are negative. X-ray of the chest was obtained, which showed versus consolidation bilaterally. IMPRESSION: 1. UTI. 2. Doubt pneumonia, given equivocal findings on imaging studies. 3. Hypertension. DISCUSSION: Agree with admission and care. The patient is currently on antibiotic therapy with cefepime with which I concur. ID was also consulted on her. I do not suspect pneumonia given lack of hypoxemia or clinical symptoms as well as fairly unremarkable chest x-ray. 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 Babar Sevilla M.D. DR: ONESIMO JOB#: [id number] CC:
--- NOTE | 2018-08-13 13:30 | Consultation ---
DATE OF CONSULTATION: 08/13/2018 PULMONARY CONSULTATION CONSULTING PHYSICIAN: Babar Sevilla M.D. REFERRING PHYSICIAN: Cory Lemus M.D. REASON FOR CONSULT: Pneumonia. HISTORY OF PRESENT ILLNESS: This is an 87-year-old female, who came to the hospital for need of a G-tube insertion. The patient apparently had an NG that had been self removed. The patient at this time is not able to answer any question. Her workup is also notable for pneumonia as well as UTI. PAST HISTORY: Osteoporosis, hypertension, bladder dysfunction, hyperlipidemia, COPD, and schizophrenia. ALLERGIES: Penicillin. PAST SURGICAL HISTORY: None known. REVIEW OF SYSTEMS: Not obtainable. PHYSICAL EXAMINATION: GENERAL: Reveals elderly female, poorly responsive. HEENT: Unremarkable. CHEST: Clear breath sounds bilaterally with few basilar crackles. ABDOMEN: Soft. EXTREMITIES: There is no edema. NEUROLOGIC: Nonfocal. LABORATORY DATA: Lab testing shows white count 12.3, hemoglobin 11.2. Chemistries are normal. Urinalysis shows 5 to 10 wbc. Coags are negative. Serologies are negative. X-ray of the chest was obtained, which showed versus consolidation bilaterally. IMPRESSION: 1. UTI. 2. Doubt pneumonia, given equivocal findings on imaging studies. 3. Hypertension. DISCUSSION: Agree with admission and care. The patient is currently on antibiotic therapy with cefepime with which I concur. ID was also consulted on her. I do not suspect pneumonia given lack of hypoxemia or clinical symptoms as well as fairly unremarkable chest x-ray. 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 Babar Sevilla M.D. DR: ONESIMO JOB#: [id number] CC:
[2018-08-13 16:00] VITALS: BP 169/82
[2018-08-13] MEDS ORDERED: Vancomycin 1.25gm Premix IVPB SCH (16:00)
--- NOTE | 2018-08-13 19:45 | Consultation ---
DATE OF CONSULTATION: 08/13/2018 CONSULTING PHYSICIAN: Enzo Bush M.D. CHIEF COMPLAINT: Failure to thrive. HISTORY OF PRESENT ILLNESS: Most of the history per chart. The patient is not able to give any history. This is an 87-year-old female, who was brought mainly for G-tube placement. PAST MEDICAL HISTORY: 1. Osteoporosis. 2. Hypertension. 3. Bladder dysfunction. 4. Hyperlipidemia. 5. Schizophrenia. 6. COPD. ALLERGIES: Penicillin. MEDICATIONS: Please see medication reconciliation list. PAST SURGICAL HISTORY: None or unknown. REVIEW OF SYSTEMS: Unable to obtain. PHYSICAL EXAMINATION: GENERAL: Confused, agitated, elderly woman. VITAL SIGNS: Temperature is 98.4, pulse is 99, respirations 17, blood pressure is 138/77. HEENT: Normocephalic and atraumatic. Sclerae anicteric. NECK: Supple. No evidence of lymphadenopathy. CARDIOVASCULAR: Regular rate and rhythm. Plus S1 and S2. No obvious murmur. LUNGS: Decreased breath sounds bilaterally at bases on the supine exam. ABDOMEN: Soft, nontender. No rebound. No guarding. No peritoneal sign. EXTREMITIES: No cyanosis, no clubbing, no edema. LABORATORY DATA: White count 9.2, hemoglobin 13, hematocrit 40, platelets of 177,000. Sodium 139, potassium 3.5, BUN is 12, creatinine 0.6. ASSESSMENT AND PLAN: This is an 87-year-old female with failure to thrive. Plan to get a consent from the family or DPOA for PEG placement for Wednesday. The patient to be NPO after midnight on Wednesday night for PEG placement. The patient would need a dose of antibiotics prior to the procedure. Given allergy to penicillin, we recommend vancomycin 1 g prior to the procedure. We will follow. I want to thank, Dr. Lemus, for this kind referral. Enzo Bush M.D. DR: BARRIE JOB#: [id number] CC: Cory Lemus M.D.
[2018-08-13 20:00] VITALS: BP 138/75
[2018-08-14] VITALS: BP 145/65
[2018-08-14] MEDS: Enalaprilat 2.5mg/2ml Inj IV SCH ×4 (00:19→17:35)
[2018-08-14] MEDS: Cefepime HCl 2 GM in D5W 55 ML IV SCH ×2 (00:19→11:39)
[2018-08-14 04:00] VITALS: BP 147/69
[2018-08-14] MEDS: D5 1/2NS 1,000 ML IV SCH (05:43)
[2018-08-14] MEDS: NovoLOG Insulin Flexpen SUBQ SCH ×4 (05:53→21:44)
[2018-08-14 08:00] VITALS: BP 157/72
--- NOTE | 2018-08-14 08:05 | Nephrology Progress Note ---
Assessment/Plan Assessment/Plan A/P 1) Sepsis- UTI - WBC improved on ABx per ID mgmt 2) FTT- awaiting GTube on Wednesday afetr consent obtained 3) DVT Prophylaxsis with lovenox 4) HTN - IV enalapril until GTube placed Subjective Date patient seen: Aug 14, 2018 Time patient seen: 08:03 ROS Limited/Unobtainable: Yes Allergies: Coded Allergies: PENICILLINS (Unverified Allergy, Unknown, 12/20/13) Subjective Patient awake but nonverbal Objective Last 24 Hour Vital Signs Date Time Temp Pulse Resp B/P (MAP) Pulse Ox O2 Delivery O2 Flow Rate FiO2 08/14/18 05:12 147/69 08/14/18 04:00 97.8 97 16 147/69 (95) 95 08/14/18 00:19 154/74 08/14/18 00:00 97.3 92 18 145/65 (91) 96 08/13/18 21:00 Nasal Cannula 2.0 08/13/18 20:00 97.4 102 18 138/75 (96) 99 08/13/18 18:45 109 21 Nasal Cannula 2.0 28 08/13/18 17:39 154/74 08/13/18 16:00 98.6 100 18 169/82 (111) 95 08/13/18 12:41 159/86 08/13/18 12:00 99.1 94 17 159/86 (110) 08/13/18 09:14 Nasal Cannula 2.0 Intake and Output 08/13/18 08/14/18 18:59 06:59 Intake Total 780 ml 300 ml Output Total 300 ml Balance 480 ml 300 ml Intake IV Total 780 ml 300 ml Output Urine Total 300 ml # Voids 2 100 # Bowel Movements 2 1 Height (Feet): 5 Height (Inches): 6.00 Weight (Pounds): 150 General Appearance: no apparent distress EENT: normal ENT inspection Neck: normal alignment, supple Cardiovascular: normal rate, regular rhythm Respiratory/Chest: rhonchi - bilaterally Abdomen: non tender, soft Edema: no edema noted Arm (L), no edema noted Arm (R), no edema noted Leg (L), no edema noted Leg (R), no edema noted Pedal (L), no edema noted Pedal (R), no edema noted Generalized Cory Lemus MD Aug 14, 2018 08:05
[2018-08-14] MEDS: Enoxaparin 40mg Inj SUBQ SCH (08:46)
--- NOTE | 2018-08-14 09:50 | Pulmonology Progress Note ---
Assessment/Plan Assessment/Plan IMPRESSION: 1. UTI. 2. Doubt pneumonia, given equivocal findings on imaging studies. 3. Hypertension. DISCUSSION: Agree with admission and care. The patient is currently on antibiotic therapy with cefepime with which I concur. ID was also consulted on her. I do not suspect pneumonia given lack of hypoxemia or clinical symptoms as well as fairly unremarkable chest x-ray. I will follow as manager financial systems, antibiotics per ID. GT after consent Subjective Interval Events: Looking better Constitutional: Reports: no symptoms HEENT: Repors: no symptoms Respiratory: Reports: no symptoms Cardiovascular: Reports: no symptoms Gastrointestinal/Abdominal: Reports: no symptoms Genitourinary: Reports: no symptoms Neurologic: Reports: no symptoms Allergies: Coded Allergies: PENICILLINS (Unverified Allergy, Unknown, 12/20/13) Objective Last 24 Hour Vital Signs Date Time Temp Pulse Resp B/P (MAP) Pulse Ox O2 Delivery O2 Flow Rate FiO2 08/14/18 09:00 Nasal Cannula 2.0 08/14/18 08:40 Nasal Cannula 2.0 08/14/18 08:40 96 Nasal Cannula 2.0 08/14/18 08:39 92 18 Nasal Cannula 2.0 08/14/18 08:00 98.3 94 19 157/72 (100) 97 08/14/18 05:12 147/69 08/14/18 04:00 97.8 97 16 147/69 (95) 95 08/14/18 00:19 154/74 08/14/18 00:00 97.3 92 18 145/65 (91) 96 08/13/18 21:00 Nasal Cannula 2.0 08/13/18 20:00 97.4 102 18 138/75 (96) 99 08/13/18 18:45 109 21 Nasal Cannula 2.0 28 08/13/18 17:39 154/74 08/13/18 16:00 98.6 100 18 169/82 (111) 95 08/13/18 12:41 159/86 08/13/18 12:00 99.1 94 17 159/86 (110) Intake and Output 08/13/18 08/14/18 18:59 06:59 Intake Total 780 ml 300 ml Output Total 300 ml Balance 480 ml 300 ml Intake IV Total 780 ml 300 ml Output Urine Total 300 ml # Voids 2 100 # Bowel Movements 2 1 General Appearance: no acute distress HEENT: normocephalic Respiratory/Chest: chest wall non-tender, lungs clear Cardiovascular: normal peripheral pulses, normal rate Abdomen: normal bowel sounds, soft, non tender Microbiology Date/Time Source Procedure Growth Status 08/12/18 10:55 Blood Blood Culture - Preliminary Staphylococcus Sp Coag Neg Resulted 08/12/18 10:45 Blood Blood Culture - Preliminary NO GROWTH AFTER 24 HOURS Resulted 08/12/18 11:00 Nasal Nares MRSA Culture - Final NO METHICILLIN RESISTANT STAPH AUREUS... Complete 08/12/18 11:00 Urine,Clean Catch Urine Culture - Final Escherichia Coli Complete 08/12/18 11:00 Rectum VRE Culture - Final NO VANCOMYCIN RESISTANT ENTEROCOCCUS ... Complete 08/12/18 11:00 Rectum - Final NO CARBAPENEM-RESISTANT ENTEROBACTERI... Complete Current Medications Medications (Trade) Dose Ordered Sig/Eveline Route PRN Reason Start Time Stop Time Status Last Admin Dose Admin Albuterol/ Ipratropium (Albuterol/ Ipratropium) 3 ml QIDPRN PRN HHN Shortness of Breath 08/12/18 15:00 08/17/18 14:59 Cefepime HCl 2 gm/ Dextrose 55 ml @ 110 mls/hr Q12H IV 08/13/18 00:00 08/20/18 00:00 08/14/18 00:19 Dextrose (Dextrose 50%) 25 ml Q30M PRN IV Hypoglycemia 08/13/18 07:45 09/12/18 07:44 Dextrose (Dextrose 50%) 50 ml Q30M PRN IV Hypoglycemia 08/13/18 07:45 09/12/18 07:44 Dextrose/Sodium Chloride 1,000 ml @ 50 mls/hr Q20H IV 08/12/18 15:56 09/11/18 15:55 08/14/18 05:43 Enalaprilat (Vasotec) 2.5 mg EVERY 6 HOURS IV 08/12/18 18:00 09/11/18 17:59 08/14/18 05:12 Enoxaparin Sodium (Lovenox) 40 mg DAILY SUBQ 08/13/18 09:00 09/12/18 08:59 08/14/18 08:46 Insulin Aspart (NovoLOG) BEFORE MEALS AND HS SUBQ 08/13/18 11:30 09/12/18 11:29 08/13/18 11:35 Levofloxacin 150 ml @ 150 mls/hr Q48H IVPB 08/14/18 12:00 08/21/18 11:59 Metronidazole 100 ml @ 100 mls/hr Q8HR IVPB 08/12/18 22:00 08/19/18 21:59 08/14/18 05:08 Vancomycin HCl (Vanco rx to dose) 1 ea DAILY PRN MISC Per rx protocol 08/13/18 14:30 09/12/18 14:29 Vancomycin HCl 750 mg/Sodium Chloride 275 ml @ 183.333 mls/hr Q24H IVPB 08/14/18 16:00 08/19/18 15:59 08/13/18 17:02 Babar Sevilla MD Aug 14, 2018 09:50
--- NOTE | 2018-08-14 10:46 | General Progress Note ---
Assessment/Plan Problem List: (1) HTN (hypertension) ICD Codes: I10 - HTN (hypertension) SNOMED: 98664350 (2) Failure to thrive SNOMED: 61484814 Qualifiers: Qualified Codes: R62.7 - Adult failure to thrive (3) Hyperlipemia ICD Codes: E78.5 - Hyperlipemia SNOMED: 64756781 (4) UTI (urinary tract infection) ICD Codes: N39.0 - Urinary tract infection, site not specified SNOMED: 04167465 Qualifiers: Qualified Codes: N39.0 - Urinary tract infection, site not specified Assessment/Plan plan PEG tomorrow pending consent fu labs Subjective ROS Limited/Unobtainable: No Allergies: Coded Allergies: PENICILLINS (Unverified Allergy, Unknown, 12/20/13) Objective Last 24 Hour Vital Signs Date Time Temp Pulse Resp B/P (MAP) Pulse Ox O2 Delivery O2 Flow Rate FiO2 08/14/18 09:00 Nasal Cannula 2.0 08/14/18 08:40 Nasal Cannula 2.0 08/14/18 08:40 96 Nasal Cannula 2.0 08/14/18 08:39 92 18 Nasal Cannula 2.0 08/14/18 08:00 98.3 94 19 157/72 (100) 97 08/14/18 05:12 147/69 08/14/18 04:00 97.8 97 16 147/69 (95) 95 08/14/18 00:19 154/74 08/14/18 00:00 97.3 92 18 145/65 (91) 96 08/13/18 21:00 Nasal Cannula 2.0 08/13/18 20:00 97.4 102 18 138/75 (96) 99 08/13/18 18:45 109 21 Nasal Cannula 2.0 28 08/13/18 17:39 154/74 08/13/18 16:00 98.6 100 18 169/82 (111) 95 08/13/18 12:41 159/86 08/13/18 12:00 99.1 94 17 159/86 (110) Intake and Output 08/13/18 08/14/18 18:59 06:59 Intake Total 780 ml 300 ml Output Total 300 ml Balance 480 ml 300 ml Intake IV Total 780 ml 300 ml Output Urine Total 300 ml # Voids 2 100 # Bowel Movements 2 1 Height (Feet): 5 Height (Inches): 6.00 Weight (Pounds): 150 General Appearance: lethargic EENT: normal ENT inspection Neck: supple Cardiovascular: normal rate Respiratory/Chest: decreased breath sounds Abdomen: normal bowel sounds, non tender, soft Extremities: non-tender Enzo Bush MD Aug 14, 2018 10:46
[2018-08-14 12:00] VITALS: BP 128/61
[2018-08-14] MEDS ORDERED: cefTRIAXone 1 GM in D5W 50 ML IVPB SCH (13:00)
--- NOTE | 2018-08-14 14:00 | Infectious Diseases Prog Note ---
Assessment/Plan Assessment/Plan ASSESSMENT/PLAN: 1. 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 The patient has history of cardiac disease. It is unclear what type it is. She has had tachycardia. 3. The patient has history of hypertension. Blood pressure treatment per Dr. Lemus. 4. Hyperlipidemia or dyslipidemia. 5. Anemia. 6. Falls. 7. Osteoporosis. 8. Obesity. 9. Asthma. 10. COPD. 11. Schizophrenia. 12. Dementia. 13. Aspiration risk. 14. Tachycardia. 15. Past medical history is as noted. 16. Allergies to penicillin. Tolerates cephalosporins. 17. Social history is negative. 18. Family history is noncontributory. 19. MAR was noted. 20. Case was discussed with RN. 21. Case was discussed with Dr. Lemus. 22. Continue treatment per primary consultants. 23. Notes and records were noted. 24. Orders were entered. Subjective Constitutional: Reports: fatigue; Denies: fever HEENT: Denies: congestion Respiratory: Denies: shortness of breath Cardiovascular: Denies: chest pain Gastrointestinal/Abdominal: Denies: nausea, vomiting, diarrhea Genitourinary: Reports: other - no lambert, incontinent Neurologic: Denies: headache Psychiatric: Denies: depression Skin: Denies: rash Hematologic: Denies: bleeding Musculoskeletal: Denies: pain Allergies: Coded Allergies: PENICILLINS (Unverified Allergy, Unknown, 12/20/13) Objective Vital Signs Last 24 Hour Vital Signs Date Time Temp Pulse Resp B/P (MAP) Pulse Ox O2 Delivery O2 Flow Rate FiO2 08/14/18 12:00 97.7 93 18 128/61 (83) 97 08/14/18 11:57 128/61 08/14/18 09:00 Nasal Cannula 2.0 08/14/18 08:40 Nasal Cannula 2.0 08/14/18 08:40 96 Nasal Cannula 2.0 08/14/18 08:39 92 18 Nasal Cannula 2.0 08/14/18 08:00 98.3 94 19 157/72 (100) 97 08/14/18 05:12 147/69 08/14/18 04:00 97.8 97 16 147/69 (95) 95 08/14/18 00:19 154/74 08/14/18 00:00 97.3 92 18 145/65 (91) 96 08/13/18 21:00 Nasal Cannula 2.0 08/13/18 20:00 97.4 102 18 138/75 (96) 99 08/13/18 18:45 109 21 Nasal Cannula 2.0 28 08/13/18 17:39 154/74 08/13/18 16:00 98.6 100 18 169/82 (111) 95 Height (Feet): 5 Height (Inches): 6.00 Weight (Pounds): 150 General Appearance: no acute distress HEENT: normocephalic, atraumatic, anicteric, mucous membranes moist Respiratory/Chest: lungs clear, normal breath sounds, no respiratory distress, no accessory muscle use Cardiovascular: normal rate, regular rhythm, no gallop/murmur, no JVD Abdomen: normal bowel sounds, soft, non tender, no organomegaly, non distended Genitourinary: other - no lambert Extremities: no cyanosis Skin: no rash 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 FINDINGS: Lungs: Again seen are prominent interstitial markings throughout both lungs, likely associated with interstitial edema. This appears unchanged to slightly improved since the prior exam performed yesterday. No definite airspace consolidation. Pleural spaces: No significant pleural effusions. No evidence of pneumothorax. Heart: Cardiac silhouette is within normal limits. Mediastinum: No mediastinal widening or shift. Bones: No acute fracture. IMPRESSION: Pulmonary edema, unchanged to slightly improved. No airspace consolidation or pneumothorax. Microbiology Date/Time Source Procedure Growth Status 08/12/18 10:55 Blood Blood Culture - Preliminary Staphylococcus Sp Coag Neg Resulted 08/12/18 10:45 Blood Blood Culture - Preliminary NO GROWTH AFTER 24 HOURS Resulted 08/12/18 11:00 Nasal Nares MRSA Culture - Final NO METHICILLIN RESISTANT STAPH AUREUS... Complete 08/12/18 11:00 Urine,Clean Catch Urine Culture - Final Escherichia Coli Complete 08/12/18 11:00 Rectum VRE Culture - Final NO VANCOMYCIN RESISTANT ENTEROCOCCUS ... Complete 08/12/18 11:00 Rectum - Final NO CARBAPENEM-RESISTANT ENTEROBACTERI... Complete Labs Test 08/12/18 10:29 08/12/18 10:45 08/12/18 11:00 08/12/18 11:29 White Blood Count 12.3 K/UL (4.8-10.8) Red Blood Count 5.78 M/UL (4.20-5.40) Hemoglobin 15.7 G/DL (12.0-16.0) Hematocrit 47.1 % (37.0-47.0) Mean Corpuscular Volume 81 FL (80-99) Mean Corpuscular Hemoglobin 27.2 PG (27.0-31.0) Mean Corpuscular Hemoglobin Concent 33.4 G/DL (32.0-36.0) Red Cell Distribution Width 13.3 % (11.6-14.8) Platelet Count 239 K/UL (150-450) Mean Platelet Volume 9.9 FL (6.5-10.1) Neutrophils (%) (Auto) % (45.0-75.0) Lymphocytes (%) (Auto) % (20.0-45.0) Monocytes (%) (Auto) % (1.0-10.0) Eosinophils (%) (Auto) % (0.0-3.0) Basophils (%) (Auto) % (0.0-2.0) Differential Total Cells Counted 100 Neutrophils % (Manual) 81 % (45-75) Lymphocytes % (Manual) 15 % (20-45) Monocytes % (Manual) 4 % (1-10) Eosinophils % (Manual) 0 % (0-3) Basophils % (Manual) 0 % (0-2) Band Neutrophils 0 % (0-8) Platelet Estimate Adequate Platelet Morphology Normal Red Blood Cell Morphology Normal Prothrombin Time 10.7 SEC (9.30-11.50) Prothromb Time International Ratio 1.0 (0.9-1.1) Activated Partial Thromboplast Time 27 SEC (23-33) Sodium Level 138 MMOL/L (136-145) Potassium Level 3.8 MMOL/L (3.5-5.1) Chloride Level 98 MMOL/L (98-107) Carbon Dioxide Level 30 MMOL/L (21-32) Anion Gap 10 mmol/L (5-15) Blood Urea Nitrogen 18 mg/dL (7-18) Creatinine 0.6 MG/DL (0.55-1.30) Estimat Glomerular Filtration Rate mL/min (>60) Glucose Level 151 MG/DL (74-106) Lactic Acid Level 1.30 mmol/L (0.4-2.0) Calcium Level 9.9 MG/DL (8.5-10.1) Total Bilirubin 0.6 MG/DL (0.2-1.0) Aspartate Amino Transf (AST/SGOT) 25 U/L (15-37) Alanine Aminotransferase (ALT/SGPT) 20 U/L (12-78) Alkaline Phosphatase 106 U/L (46-116) Total Creatine Kinase 233 U/L (26-308) Troponin I 0.000 ng/mL (0.000-0.056) Pro-B-Type Natriuretic Peptide 653 pg/mL (0-125) Total Protein 8.9 G/DL (6.4-8.2) Albumin 3.5 G/DL (3.4-5.0) Globulin 5.4 g/dL Albumin/Globulin Ratio 0.6 (1.0-2.7) Urine Color Yellow Urine Appearance Cloudy Urine pH 6 (4.5-8.0) Urine Specific [place] 1.020 (1.005-1.035) Urine Protein 3+ (NEGATIVE) Urine Glucose (UA) Negative (NEGATIVE) Urine Ketones 3+ (NEGATIVE) Urine Blood 2+ (NEGATIVE) Urine Nitrite Negative (NEGATIVE) Urine Bilirubin Negative (NEGATIVE) Urine Urobilinogen 1 MG/DL (0.0-1.0) Urine Leukocyte Esterase 1+ (NEGATIVE) Urine RBC 2-4 /HPF (0 - 2) Urine WBC 5-10 /HPF (0 - 2) Urine Squamous Epithelial Cells Few /LPF (NONE/OCC) Urine Bacteria Many /HPF (NONE) Test 08/12/18 18:30 08/13/18 05:35 White Blood Count 9.2 K/UL (4.8-10.8) Red Blood Count 4.86 M/UL (4.20-5.40) Hemoglobin 13.4 G/DL (12.0-16.0) Hematocrit 40.4 % (37.0-47.0) Mean Corpuscular Volume 83 FL (80-99) Mean Corpuscular Hemoglobin 27.6 PG (27.0-31.0) Mean Corpuscular Hemoglobin Concent 33.2 G/DL (32.0-36.0) Red Cell Distribution Width 13.8 % (11.6-14.8) Platelet Count 177 K/UL (150-450) Mean Platelet Volume 9.6 FL (6.5-10.1) Neutrophils (%) (Auto) 78.0 % (45.0-75.0) Lymphocytes (%) (Auto) 10.3 % (20.0-45.0) Monocytes (%) (Auto) 8.4 % (1.0-10.0) Eosinophils (%) (Auto) 2.1 % (0.0-3.0) Basophils (%) (Auto) 1.3 % (0.0-2.0) Sodium Level 139 MMOL/L (136-145) Potassium Level 3.5 MMOL/L (3.5-5.1) Chloride Level 102 MMOL/L (98-107) Carbon Dioxide Level 28 MMOL/L (21-32) Anion Gap 9 mmol/L (5-15) Blood Urea Nitrogen 12 mg/dL (7-18) Creatinine 0.6 MG/DL (0.55-1.30) Estimat Glomerular Filtration Rate mL/min (>60) Glucose Level 119 MG/DL (74-106) Calcium Level 8.5 MG/DL (8.5-10.1) Current Medications Medications (Trade) Dose Ordered Sig/Eveline Route PRN Reason Start Time Stop Time Status Last Admin Dose Admin Albuterol/ Ipratropium (Albuterol/ Ipratropium) 3 ml QIDPRN PRN HHN Shortness of Breath 08/12/18 15:00 08/17/18 14:59 Ceftriaxone Sodium 1 gm/ Dextrose 50 ml @ 100 mls/hr Q24H IVPB 08/14/18 14:00 08/21/18 13:59 Dextrose (Dextrose 50%) 25 ml Q30M PRN IV Hypoglycemia 08/13/18 07:45 09/12/18 07:44 Dextrose (Dextrose 50%) 50 ml Q30M PRN IV Hypoglycemia 08/13/18 07:45 09/12/18 07:44 Dextrose/Sodium Chloride 1,000 ml @ 50 mls/hr Q20H IV 08/12/18 15:56 09/11/18 15:55 08/14/18 05:43 Enalaprilat (Vasotec) 2.5 mg EVERY 6 HOURS IV 08/12/18 18:00 09/11/18 17:59 08/14/18 05:12 Enoxaparin Sodium (Lovenox) 40 mg DAILY SUBQ 08/13/18 09:00 09/12/18 08:59 08/14/18 08:46 Insulin Aspart (NovoLOG) BEFORE MEALS AND HS SUBQ 08/13/18 11:30 09/12/18 11:29 08/14/18 11:46 Jarrod Lopes MD Aug 14, 2018 14:00
[2018-08-14] MEDS: cefTRIAXone 1 GM in D5W 50 ML IVPB SCH (14:26)
[2018-08-14 16:00] VITALS: BP 128/71
[2018-08-14] MEDS ORDERED: Vancomycin 750mg/NS 275ml IVPB SCH ×2 (16:00)
[2018-08-14] MEDS ORDERED: Tubing IV Secondary IV ONE (16:44)
[2018-08-14 20:00] VITALS: BP 175/79
[2018-08-15] VITALS (7 sets, daily range): BP systolic 131–163; BP diastolic 68–94
[2018-08-15] MEDS: Enalaprilat 2.5mg/2ml Inj IV SCH ×4 (00:02→18:20)
[2018-08-15] MEDS: D5 1/2NS 1,000 ML IV SCH (04:05)
[2018-08-15] MEDS: NovoLOG Insulin Flexpen SUBQ SCH ×4 (06:13→21:30)
[2018-08-15 06:25] LABS: BASOPHILS % (AUTO) 0.9 % (0.0-2.0); EOSINOPHILS % (AUTO) 0.8 % (0.0-3.0); HEMATOCRIT 42.3 % (37.0-47.0); LYMPHOCYTES % (AUTO) 10.2 % (20.0-45.0); MEAN CORPUSCULAR VOLUME 82 FL (80-99); MONOCYTES % (AUTO) 7.8 % (1.0-10.0); NEUTROPHILS % (AUTO) 80.3 % (45.0-75.0); PLATELET COUNT 168 K/UL (150-450); RED BLOOD COUNT 5.12 M/UL (4.20-5.40); RED CELL DISTRIBUTION WIDTH 13.4 % (11.6-14.8); WHITE BLOOD COUNT 8.8 K/UL (4.8-10.8)
[2018-08-15 06:39] LABS: ANION GAP 9 mmol/L (5-15); BLOOD UREA NITROGEN 9 mg/dL (7-18); CALCIUM 9.1 MG/DL (8.5-10.1); CARBON DIOXIDE 29 MMOL/L (21-32); CHLORIDE 99 MMOL/L (98-107); CREATININE 0.5 MG/DL (0.55-1.30); POTASSIUM 2.9 MMOL/L (3.5-5.1); SODIUM 137 MMOL/L (136-145)
[2018-08-15] MEDS: Enoxaparin 40mg Inj SUBQ SCH (08:54)
--- NOTE | 2018-08-15 09:42 | General Progress Note ---
Assessment/Plan Problem List: (1) HTN (hypertension) ICD Codes: I10 - HTN (hypertension) SNOMED: 62588106 (2) Failure to thrive SNOMED: 90254291 Qualifiers: Qualified Codes: R62.7 - Adult failure to thrive (3) Hyperlipemia ICD Codes: E78.5 - Hyperlipemia SNOMED: 00794408 (4) UTI (urinary tract infection) ICD Codes: N39.0 - Urinary tract infection, site not specified SNOMED: 95586492 Qualifiers: Qualified Codes: N39.0 - Urinary tract infection, site not specified Assessment/Plan no consent yet for PEG left massages for the conservator swallow eval for today while pending PEG Subjective ROS Limited/Unobtainable: No Allergies: Coded Allergies: PENICILLINS (Unverified Allergy, Unknown, 12/20/13) Objective Last 24 Hour Vital Signs Date Time Temp Pulse Resp B/P (MAP) Pulse Ox O2 Delivery O2 Flow Rate FiO2 08/15/18 06:20 143/72 08/15/18 04:00 98.2 98 20 143/72 (95) 95 08/15/18 00:02 157/69 08/15/18 00:00 98.8 99 20 157/68 (97) 96 08/14/18 21:00 Nasal Cannula 2.0 08/14/18 20:00 98.1 99 20 175/79 (111) 96 08/14/18 19:46 Nasal Cannula 2.0 28 08/14/18 19:46 95 Nasal Cannula 2.0 28 08/14/18 19:46 92 18 Nasal Cannula 2.0 28 08/14/18 17:35 128/71 08/14/18 16:00 98.6 92 19 128/71 (90) 97 08/14/18 12:00 97.7 93 18 128/61 (83) 97 08/14/18 11:57 128/61 Intake and Output 08/14/18 08/15/18 19:00 07:00 Intake Total 655 ml 550 ml Balance 655 ml 550 ml Intake Oral 0 ml IV Total 655 ml 550 ml # Voids 2 2 # Bowel Movements 1 2 Laboratory Tests 08/15/18 05:00: White Blood Count 8.8, Red Blood Count 5.12, Hemoglobin 14.0, Hematocrit 42.3, Mean Corpuscular Volume 82, Mean Corpuscular Hemoglobin 27.3, Mean Corpuscular Hemoglobin Concent 33.0, Red Cell Distribution Width 13.4, Platelet Count 168, Mean Platelet Volume 8.7, Neutrophils (%) (Auto) 80.3H, Lymphocytes (%) (Auto) 10.2L, Monocytes (%) (Auto) 7.8, Eosinophils (%) (Auto) 0.8, Basophils (%) (Auto ) 0.9, Sodium Level 137, Potassium Level 2.9L, Chloride Level 99, Carbon Dioxide Level 29, Anion Gap 9, Blood Urea Nitrogen 9, Creatinine 0.5L, Estimat Glomerular Filtration Rate , Glucose Level 147H, Calcium Level 9.1 Height (Feet): 5 Height (Inches): 6.00 Weight (Pounds): 150 General Appearance: no apparent distress EENT: normal ENT inspection Neck: supple Cardiovascular: normal rate Respiratory/Chest: decreased breath sounds Abdomen: normal bowel sounds, non tender, soft Extremities: non-tender Enzo Bush MD Aug 15, 2018 09:42
[2018-08-15] MEDS ORDERED: D5 1/2NS 1000ml IV ONE (14:32)
[2018-08-15] MEDS ORDERED: Tubing IV Secondary IV ONE (14:32)
[2018-08-15] MEDS: cefTRIAXone 1 GM in D5W 50 ML IVPB SCH (14:43)
--- NOTE | 2018-08-15 14:49 | Pulmonology Progress Note ---
Assessment/Plan Assessment/Plan IMPRESSION: 1. UTI. 2. Doubt pneumonia, CXR suggestive of pulmonary edema (mild) vs chronic changes. 3. Hypertension. DISCUSSION: I do not suspect pneumonia given lack of hypoxemia or clinical symptoms as well as fairly unremarkable chest x-ray. 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 GT after consent Subjective Interval Events: K 2.9; no new symptoms; repeat CXR reviewed Constitutional: Reports: no symptoms HEENT: Repors: no symptoms Respiratory: Reports: no symptoms Cardiovascular: Reports: no symptoms Gastrointestinal/Abdominal: Reports: no symptoms Genitourinary: Reports: no symptoms Neurologic: Reports: no symptoms Allergies: Coded Allergies: PENICILLINS (Unverified Allergy, Unknown, 12/20/13) Objective Last 24 Hour Vital Signs Date Time Temp Pulse Resp B/P (MAP) Pulse Ox O2 Delivery O2 Flow Rate FiO2 08/15/18 13:05 157/67 08/15/18 12:00 99.4 110 20 131/75 (93) 95 08/15/18 08:45 Nasal Cannula 2.0 08/15/18 08:00 98.9 92 20 163/80 (107) 95 08/15/18 06:20 143/72 08/15/18 04:00 98.2 98 20 143/72 (95) 95 08/15/18 00:02 157/69 08/15/18 00:00 98.8 99 20 157/68 (97) 96 08/14/18 21:00 Nasal Cannula 2.0 08/14/18 20:00 98.1 99 20 175/79 (111) 96 08/14/18 19:46 Nasal Cannula 2.0 28 08/14/18 19:46 95 Nasal Cannula 2.0 28 08/14/18 19:46 92 18 Nasal Cannula 2.0 28 08/14/18 17:35 128/71 08/14/18 16:00 98.6 92 19 128/71 (90) 97 Intake and Output 08/14/18 08/15/18 18:59 06:59 Intake Total 655 ml 600 ml Balance 655 ml 600 ml Intake Oral 0 ml IV Total 655 ml 600 ml # Voids 2 2 # Bowel Movements 1 2 General Appearance: no acute distress HEENT: normocephalic Respiratory/Chest: chest wall non-tender, lungs clear Cardiovascular: normal peripheral pulses, normal rate Abdomen: normal bowel sounds, soft, non tender Laboratory Tests 08/15/18 05:00: White Blood Count 8.8, Red Blood Count 5.12, Hemoglobin 14.0, Hematocrit 42.3, Mean Corpuscular Volume 82, Mean Corpuscular Hemoglobin 27.3, Mean Corpuscular Hemoglobin Concent 33.0, Red Cell Distribution Width 13.4, Platelet Count 168, Mean Platelet Volume 8.7, Neutrophils (%) (Auto) 80.3H, Lymphocytes (%) (Auto) 10.2L, Monocytes (%) (Auto) 7.8, Eosinophils (%) (Auto) 0.8, Basophils (%) (Auto ) 0.9, Sodium Level 137, Potassium Level 2.9L, Chloride Level 99, Carbon Dioxide Level 29, Anion Gap 9, Blood Urea Nitrogen 9, Creatinine 0.5L, Estimat Glomerular Filtration Rate , Glucose Level 147H, Calcium Level 9.1 Current Medications Medications (Trade) Dose Ordered Sig/Eveline Route PRN Reason Start Time Stop Time Status Last Admin Dose Admin Albuterol/ Ipratropium (Albuterol/ Ipratropium) 3 ml QIDPRN PRN HHN Shortness of Breath 08/12/18 15:00 08/17/18 14:59 Ceftriaxone Sodium 1 gm/ Dextrose 50 ml @ 100 mls/hr Q24H IVPB 08/14/18 14:00 08/21/18 13:59 08/15/18 14:43 Dextrose (Dextrose 50%) 25 ml Q30M PRN IV Hypoglycemia 08/13/18 07:45 09/12/18 07:44 Dextrose (Dextrose 50%) 50 ml Q30M PRN IV Hypoglycemia 08/13/18 07:45 09/12/18 07:44 Dextrose/Sodium Chloride 1,000 ml @ 50 mls/hr Q20H IV 08/12/18 15:56 09/11/18 15:55 08/15/18 04:05 Enalaprilat (Vasotec) 2.5 mg EVERY 6 HOURS IV 08/12/18 18:00 09/11/18 17:59 08/15/18 13:05 Enoxaparin Sodium (Lovenox) 40 mg DAILY SUBQ 08/13/18 09:00 09/12/18 08:59 08/15/18 08:54 Insulin Aspart (NovoLOG) BEFORE MEALS AND HS SUBQ 08/13/18 11:30 09/12/18 11:29 08/15/18 12:55 Babar Sevilla MD Aug 15, 2018 14:49
--- NOTE | 2018-08-15 17:41 | General Progress Note ---
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 SNOMED: 040487241 (4) Failure to thrive SNOMED: 02971384 Qualifiers: Qualified Codes: R62.7 - Adult failure to thrive (5) Bilateral pneumonia ICD Codes: J18.9 - Pneumonia, unspecified organism SNOMED: 379271977 Qualifiers: Qualified Codes: J18.9 - Pneumonia, unspecified organism (6) HTN (hypertension) ICD Codes: I10 - HTN (hypertension) SNOMED: 53689387 Assessment: peg soon unable to sign, rx for pneumonia and chf, repeat cxr Subjective ROS Limited/Unobtainable: Yes Allergies: Coded Allergies: PENICILLINS (Unverified Allergy, Unknown, 12/20/13) Objective Last 24 Hour Vital Signs Date Time Temp Pulse Resp B/P (MAP) Pulse Ox O2 Delivery O2 Flow Rate FiO2 08/15/18 13:05 157/67 08/15/18 12:00 99.4 110 20 131/75 (93) 95 08/15/18 08:45 Nasal Cannula 2.0 08/15/18 08:00 98.9 92 20 163/80 (107) 95 08/15/18 06:20 143/72 08/15/18 04:00 98.2 98 20 143/72 (95) 95 08/15/18 00:02 157/69 08/15/18 00:00 98.8 99 20 157/68 (97) 96 08/14/18 21:00 Nasal Cannula 2.0 08/14/18 20:00 98.1 99 20 175/79 (111) 96 08/14/18 19:46 Nasal Cannula 2.0 28 08/14/18 19:46 95 Nasal Cannula 2.0 28 08/14/18 19:46 92 18 Nasal Cannula 2.0 28 Intake and Output 08/14/18 08/15/18 18:59 06:59 Intake Total 655 ml 600 ml Balance 655 ml 600 ml Intake Oral 0 ml IV Total 655 ml 600 ml # Voids 2 2 # Bowel Movements 1 2 Laboratory Tests 08/15/18 05:00: White Blood Count 8.8, Red Blood Count 5.12, Hemoglobin 14.0, Hematocrit 42.3, Mean Corpuscular Volume 82, Mean Corpuscular Hemoglobin 27.3, Mean Corpuscular Hemoglobin Concent 33.0, Red Cell Distribution Width 13.4, Platelet Count 168, Mean Platelet Volume 8.7, Neutrophils (%) (Auto) 80.3H, Lymphocytes (%) (Auto) 10.2L, Monocytes (%) (Auto) 7.8, Eosinophils (%) (Auto) 0.8, Basophils (%) (Auto ) 0.9, Sodium Level 137, Potassium Level 2.9L, Chloride Level 99, Carbon Dioxide Level 29, Anion Gap 9, Blood Urea Nitrogen 9, Creatinine 0.5L, Estimat Glomerular Filtration Rate , Glucose Level 147H, Calcium Level 9.1 Height (Feet): 5 Height (Inches): 6.00 Weight (Pounds): 150 General Appearance: no apparent distress, confused EENT: normal ENT inspection Neck: normal alignment Cardiovascular: normal rate, regular rhythm Respiratory/Chest: normal breath sounds Abdomen: non tender, soft Edema: no edema noted Arm (L), no edema noted Arm (R), no edema noted Leg (L), no edema noted Leg (R), no edema noted Pedal (L), no edema noted Pedal (R), no edema noted Generalized Neurologic: other - aphasia r hemiplegia Reinaldo Mistry MD Aug 15, 2018 17:41
[2018-08-15] MEDS: Potassium Chloride 40 MEQ in D5 1/2NS 1,000 ML IV SCH (18:20)
[2018-08-16] VITALS: BP 158/70
[2018-08-16] MEDS: Enalaprilat 2.5mg/2ml Inj IV SCH ×4 (00:02→17:27)
[2018-08-16 04:00] VITALS: BP 130/76
[2018-08-16] MEDS: NovoLOG Insulin Flexpen SUBQ SCH ×4 (05:40→21:00)
[2018-08-16 06:16] LABS: BASOPHILS % (AUTO) 1.1 % (0.0-2.0); EOSINOPHILS % (AUTO) 0.7 % (0.0-3.0); HEMATOCRIT 40.2 % (37.0-47.0); HEMOGLOBIN 13.4 G/DL (12.0-16.0); LYMPHOCYTES % (AUTO) 14.8 % (20.0-45.0); MEAN CORPUSCULAR VOLUME 82 FL (80-99); MONOCYTES % (AUTO) 8.9 % (1.0-10.0); NEUTROPHILS % (AUTO) 74.6 % (45.0-75.0); PLATELET COUNT 180 K/UL (150-450); RED CELL DISTRIBUTION WIDTH 13.6 % (11.6-14.8); WHITE BLOOD COUNT 8.7 K/UL (4.8-10.8)
[2018-08-16 06:35] LABS: ANION GAP 7 mmol/L (5-15); BLOOD UREA NITROGEN 8 mg/dL (7-18); CALCIUM 8.7 MG/DL (8.5-10.1); CARBON DIOXIDE 30 MMOL/L (21-32); CHLORIDE 99 MMOL/L (98-107); CREATININE 0.5 MG/DL (0.55-1.30); POTASSIUM 3.1 MMOL/L (3.5-5.1); SODIUM 136 MMOL/L (136-145)
[2018-08-16 06:39] LABS: INR 1.1 (0.9-1.1)
[2018-08-16] MEDS ORDERED: Tubing IV Secondary IV ONE (07:37)
[2018-08-16 08:00] VITALS: BP 113/58
[2018-08-16] MEDS: Enoxaparin 40mg Inj SUBQ SCH (09:05)
--- NOTE | 2018-08-16 09:42 | Diagnostic Imaging Report ---
Indication: Shortness of breath Technique: One view of the chest Comparison: 08/13/2018 Findings: Previously reported right upper lobe density is not evident on this exam. Patient is rotated slightly differently, however. Bilateral interstitial disease and central bronchial wall thickening again noted, probably unchanged. The heart size is normal. Pleural spaces are clear. Small rounded opacity is now present at the left lung base Impression: Bilateral interstitial disease, appearing similar to previous exam of 08/13/2018, May reflect ongoing interstitial edema versus chronic interstitial changes. Opacity at the left lung base, may reflect a small area of atelectasis or focal infiltrate.
--- NOTE | 2018-08-16 10:46 | GI Progress Note ---
Assessment/Plan Problems: (1) CVA, old, aphasia ICD Codes: I69.320 - Aphasia following cerebral infarction SNOMED: 592152987 (2) CHF (congestive heart failure) ICD Codes: I50.9 - Heart failure, unspecified SNOMED: 61626988 (3) Dysphagia ICD Codes: R13.10 - Dysphagia, unspecified SNOMED: 12266469, 703755173 (4) Failure to thrive SNOMED: 74514196 Qualifiers: Qualified Codes: R62.7 - Adult failure to thrive Status: unchanged Status Narrative Discussed with Dr. Bush Assessment/Plan patient to be scheduled for PEG tomorrow, will have 2 MD consent. NPO @ MI. hold all blood thinners tonight will follow with additional recommendations post procedure Supportive care The patient was seen and examined at bedside and all new and available data was reviewed in the patients chart. I agree with the above findings, impression and plan. (Patient seen earlier today. Signature stamp does not reflect patient encounter time.). - Enzo Bush MD Subjective Subjective Limited Objective Last 24 Hour Vital Signs Date Time Temp Pulse Resp B/P (MAP) Pulse Ox O2 Delivery O2 Flow Rate FiO2 08/16/18 09:00 Nasal Cannula 2.0 08/16/18 08:00 98.3 75 21 113/58 (76) 99 08/16/18 05:52 125/68 08/16/18 04:00 99.0 87 20 130/76 (94) 97 08/16/18 00:02 158/70 08/16/18 00:00 99.3 93 20 158/70 (99) 94 08/15/18 21:00 Room Air 08/15/18 20:30 99.0 102 20 141/86 (104) 95 08/15/18 20:00 94 Room Air 21 08/15/18 20:00 98 18 Room Air 21 08/15/18 20:00 99.5 111 20 157/71 (99) 94 08/15/18 20:00 Room Air 21 08/15/18 18:20 169/82 08/15/18 16:00 99.5 105 20 163/94 (117) 94 08/15/18 13:05 157/67 08/15/18 12:00 99.4 110 20 131/75 (93) 95 Intake and Output 08/15/18 08/16/18 19:00 07:00 Intake Total 650 ml Balance 650 ml IV Total 650 ml # Voids 3 6 Laboratory Tests Test 08/16/18 05:35 White Blood Count 8.7 K/UL (4.8-10.8) Red Blood Count 4.90 M/UL (4.20-5.40) Hemoglobin 13.4 G/DL (12.0-16.0) Hematocrit 40.2 % (37.0-47.0) Mean Corpuscular Volume 82 FL (80-99) Mean Corpuscular Hemoglobin 27.4 PG (27.0-31.0) Mean Corpuscular Hemoglobin Concent 33.4 G/DL (32.0-36.0) Red Cell Distribution Width 13.6 % (11.6-14.8) Platelet Count 180 K/UL (150-450) Mean Platelet Volume 9.8 FL (6.5-10.1) Neutrophils (%) (Auto) 74.6 % (45.0-75.0) Lymphocytes (%) (Auto) 14.8 % (20.0-45.0) L Monocytes (%) (Auto) 8.9 % (1.0-10.0) Eosinophils (%) (Auto) 0.7 % (0.0-3.0) Basophils (%) (Auto) 1.1 % (0.0-2.0) Prothrombin Time 12.0 SEC (9.30-11.50) H Prothromb Time International Ratio 1.1 (0.9-1.1) Sodium Level 136 MMOL/L (136-145) Potassium Level 3.1 MMOL/L (3.5-5.1) L Chloride Level 99 MMOL/L (98-107) Carbon Dioxide Level 30 MMOL/L (21-32) Anion Gap 7 mmol/L (5-15) Blood Urea Nitrogen 8 mg/dL (7-18) Creatinine 0.5 MG/DL (0.55-1.30) L Estimat Glomerular Filtration Rate mL/min (>60) Glucose Level 125 MG/DL (74-106) H Calcium Level 8.7 MG/DL (8.5-10.1) Pro-B-Type Natriuretic Peptide 800 pg/mL (0-125) H Height (Feet): 5 Height (Inches): 6.00 Weight (Pounds): 150 General Appearance: no apparent distress, alert, thin Cardiovascular: normal rate Respiratory/Chest: normal breath sounds, no respiratory distress Abdominal Exam: normal bowel sounds, non tender, soft Extremities: non-tender Dax Bowden NP Aug 16, 2018 10:45
[2018-08-16 12:00] VITALS: BP 163/71
--- NOTE | 2018-08-16 13:28 | General Progress Note ---
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 cerebral infarction SNOMED: 013618208 (4) Failure to thrive SNOMED: 87654941 Qualifiers: Qualified Codes: R62.7 - Adult failure to thrive (5) Bilateral pneumonia ICD Codes: J18.9 - Pneumonia, unspecified organism SNOMED: 962347562 Qualifiers: Qualified Codes: J18.9 - Pneumonia, unspecified organism (6) HTN (hypertension) ICD Codes: I10 - HTN (hypertension) SNOMED: 33763827 Assessment: peg soon unable to sign, aphasic rx for pneumonia and chf, repeat cxr Subjective ROS Limited/Unobtainable: Yes Allergies: Coded Allergies: PENICILLINS (Unverified Allergy, Unknown, 12/20/13) Objective Last 24 Hour Vital Signs Date Time Temp Pulse Resp B/P (MAP) Pulse Ox O2 Delivery O2 Flow Rate FiO2 08/16/18 12:00 98.1 94 18 163/71 (101) 94 08/16/18 11:38 163/71 08/16/18 09:45 95 Room Air 21 08/16/18 09:45 90 16 Room Air 21 08/16/18 09:45 Room Air 21 08/16/18 09:00 Nasal Cannula 2.0 08/16/18 08:00 98.3 75 21 113/58 (76) 99 08/16/18 05:52 125/68 08/16/18 04:00 99.0 87 20 130/76 (94) 97 08/16/18 00:02 158/70 08/16/18 00:00 99.3 93 20 158/70 (99) 94 08/15/18 21:00 Room Air 08/15/18 20:30 99.0 102 20 141/86 (104) 95 08/15/18 20:00 94 Room Air 21 08/15/18 20:00 98 18 Room Air 21 08/15/18 20:00 99.5 111 20 157/71 (99) 94 08/15/18 20:00 Room Air 21 08/15/18 18:20 169/82 08/15/18 16:00 99.5 105 20 163/94 (117) 94 Intake and Output 08/15/18 08/16/18 19:00 07:00 Intake Total 650 ml Balance 650 ml IV Total 650 ml # Voids 3 6 Laboratory Tests 08/16/18 05:35: White Blood Count 8.7, Red Blood Count 4.90, Hemoglobin 13.4, Hematocrit 40.2, Mean Corpuscular Volume 82, Mean Corpuscular Hemoglobin 27.4, Mean Corpuscular Hemoglobin Concent 33.4, Red Cell Distribution Width 13.6, Platelet Count 180, Mean Platelet Volume 9.8, Neutrophils (%) (Auto) 74.6, Lymphocytes (%) (Auto) 14.8L, Monocytes (%) (Auto) 8.9, Eosinophils (%) (Auto) 0.7, Basophils (%) (Auto ) 1.1, Prothrombin Time 12.0H, Prothromb Time International Ratio 1.1, Sodium Level 136, Potassium Level 3.1L, Chloride Level 99, Carbon Dioxide Level 30, Anion Gap 7, Blood Urea Nitrogen 8, Creatinine 0.5L, Estimat Glomerular Filtration Rate , Glucose Level 125H, Calcium Level 8.7, Pro-B-Type Natriuretic Peptide 800H Height (Feet): 5 Height (Inches): 6.00 Weight (Pounds): 150 General Appearance: no apparent distress, lethargic, confused EENT: normal ENT inspection Neck: non-tender Cardiovascular: normal rate, regular rhythm Respiratory/Chest: lungs clear, normal breath sounds Abdomen: non tender, soft Edema: no edema noted Arm (L), no edema noted Arm (R), no edema noted Leg (L), no edema noted Leg (R), no edema noted Pedal (L), no edema noted Pedal (R), no edema noted Generalized Neurologic: other - r hemiplegia aphasic Reinaldo Mistry MD Aug 16, 2018 13:28
[2018-08-16] MEDS: cefTRIAXone 1 GM in D5W 50 ML IVPB SCH (13:48)
[2018-08-16] MEDS: Potassium Chloride 40 MEQ in D5 1/2NS 1,000 ML IV SCH (13:48)
--- NOTE | 2018-08-16 14:16 | Pulmonology Progress Note ---
Assessment/Plan Assessment/Plan IMPRESSION: 1. UTI. 2. Doubt pneumonia, CXR suggestive of pulmonary edema (mild) vs chronic changes. 3. Hypertension. DISCUSSION: I do not suspect pneumonia given lack of hypoxemia or clinical symptoms as well as fairly unremarkable chest x-ray. 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 GT after consent Subjective Interval Events: None new Constitutional: Reports: no symptoms HEENT: Repors: no symptoms Respiratory: Reports: no symptoms Cardiovascular: Reports: no symptoms Gastrointestinal/Abdominal: Reports: no symptoms Genitourinary: Reports: no symptoms Allergies: Coded Allergies: PENICILLINS (Unverified Allergy, Unknown, 12/20/13) Objective Last 24 Hour Vital Signs Date Time Temp Pulse Resp B/P (MAP) Pulse Ox O2 Delivery O2 Flow Rate FiO2 08/16/18 12:00 98.1 94 18 163/71 (101) 94 08/16/18 11:38 163/71 08/16/18 09:45 95 Room Air 21 08/16/18 09:45 90 16 Room Air 08/16/18 09:45 Room Air 21 08/16/18 09:00 Nasal Cannula 2.0 08/16/18 08:00 98.3 75 21 113/58 (76) 99 08/16/18 05:52 125/68 08/16/18 04:00 99.0 87 20 130/76 (94) 97 08/16/18 00:02 158/70 08/16/18 00:00 99.3 93 20 158/70 (99) 94 08/15/18 21:00 Room Air 08/15/18 20:30 99.0 102 20 141/86 (104) 95 08/15/18 20:00 94 Room Air 21 08/15/18 20:00 98 18 Room Air 21 08/15/18 20:00 99.5 111 20 157/71 (99) 94 08/15/18 20:00 Room Air 21 08/15/18 18:20 169/82 08/15/18 16:00 99.5 105 20 163/94 (117) 94 Intake and Output 08/15/18 08/16/18 18:59 06:59 Intake Total 600 ml Balance 600 ml IV Total 600 ml # Voids 3 6 General Appearance: no acute distress HEENT: normocephalic Respiratory/Chest: chest wall non-tender Cardiovascular: normal peripheral pulses, normal rate Abdomen: normal bowel sounds Laboratory Tests 08/16/18 05:35: White Blood Count 8.7, Red Blood Count 4.90, Hemoglobin 13.4, Hematocrit 40.2, Mean Corpuscular Volume 82, Mean Corpuscular Hemoglobin 27.4, Mean Corpuscular Hemoglobin Concent 33.4, Red Cell Distribution Width 13.6, Platelet Count 180, Mean Platelet Volume 9.8, Neutrophils (%) (Auto) 74.6, Lymphocytes (%) (Auto) 14.8L, Monocytes (%) (Auto) 8.9, Eosinophils (%) (Auto) 0.7, Basophils (%) (Auto ) 1.1, Prothrombin Time 12.0H, Prothromb Time International Ratio 1.1, Sodium Level 136, Potassium Level 3.1L, Chloride Level 99, Carbon Dioxide Level 30, Anion Gap 7, Blood Urea Nitrogen 8, Creatinine 0.5L, Estimat Glomerular Filtration Rate , Glucose Level 125H, Calcium Level 8.7, Pro-B-Type Natriuretic Peptide 800H Current Medications Medications (Trade) Dose Ordered Sig/Eveline Route PRN Reason Start Time Stop Time Status Last Admin Dose Admin Albuterol/ Ipratropium (Albuterol/ Ipratropium) 3 ml QIDPRN PRN HHN Shortness of Breath 08/12/18 15:00 08/17/18 14:59 Ceftriaxone Sodium 1 gm/ Dextrose 50 ml @ 100 mls/hr Q24H IVPB 08/14/18 14:00 08/21/18 13:59 08/16/18 13:48 Dextrose (Dextrose 50%) 25 ml Q30M PRN IV Hypoglycemia 08/13/18 07:45 09/12/18 07:44 Dextrose (Dextrose 50%) 50 ml Q30M PRN IV Hypoglycemia 08/13/18 07:45 09/12/18 07:44 Enalaprilat (Vasotec) 2.5 mg EVERY 6 HOURS IV 08/12/18 18:00 09/11/18 17:59 08/16/18 11:38 Enoxaparin Sodium (Lovenox) 40 mg DAILY SUBQ 08/13/18 09:00 09/12/18 08:59 08/16/18 09:05 Insulin Aspart (NovoLOG) BEFORE MEALS AND HS SUBQ 08/13/18 11:30 09/12/18 11:29 08/16/18 11:31 Potassium Chloride 40 meq/ Dextrose/Sodium Chloride 1,020 ml @ 50 mls/hr [id number] IV 08/15/18 18:30 09/14/18 18:29 08/16/18 13:48 Babar Sevilla MD Aug 16, 2018 14:16
--- NOTE | 2018-08-16 14:51 | Infectious Diseases Prog Note ---
Assessment/Plan Assessment/Plan ASSESSMENT/PLAN: 1. 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 The patient has history of cardiac disease. It is unclear what type it is. She has had tachycardia. 3. The patient has history of hypertension. Blood pressure treatment per Dr. Lemsu. 4. Hyperlipidemia or dyslipidemia. 5. Anemia. 6. Falls. 7. Osteoporosis. 8. Obesity. 9. Asthma. 10. COPD. 11. Schizophrenia. 12. Dementia. 13. Aspiration risk. 14. Tachycardia. 15. Past medical history is as noted. 16. Allergies to penicillin. Tolerates cephalosporins. 17. Social history is negative. 18. Family history is noncontributory. 19. MAR was noted. 20. Case was discussed with RN. 21. Case was discussed with Dr. Lemus. 22. Continue treatment per primary consultants. 23. Notes and records were noted. 24. Orders were entered. Subjective Constitutional: Denies: fever HEENT: Denies: congestion Respiratory: Denies: shortness of breath Cardiovascular: Denies: chest pain Gastrointestinal/Abdominal: Denies: nausea, vomiting, diarrhea Genitourinary: Reports: other - no lambert Psychiatric: Denies: depression Skin: Denies: rash Hematologic: Denies: bleeding Musculoskeletal: Denies: pain Allergies: Coded Allergies: PENICILLINS (Unverified Allergy, Unknown, 12/20/13) Objective Vital Signs Last 24 Hour Vital Signs Date Time Temp Pulse Resp B/P (MAP) Pulse Ox O2 Delivery O2 Flow Rate FiO2 08/16/18 12:00 98.1 94 18 163/71 (101) 94 08/16/18 11:38 163/71 08/16/18 09:45 95 Room Air 21 08/16/18 09:45 90 16 Room Air 21 08/16/18 09:45 Room Air 21 08/16/18 09:00 Nasal Cannula 2.0 08/16/18 08:00 98.3 75 21 113/58 (76) 99 08/16/18 05:52 125/68 08/16/18 04:00 99.0 87 20 130/76 (94) 97 08/16/18 00:02 158/70 08/16/18 00:00 99.3 93 20 158/70 (99) 94 08/15/18 21:00 Room Air 08/15/18 20:30 99.0 102 20 141/86 (104) 95 08/15/18 20:00 94 Room Air 21 08/15/18 20:00 98 18 Room Air 21 08/15/18 20:00 99.5 111 20 157/71 (99) 94 08/15/18 20:00 Room Air 21 08/15/18 18:20 169/82 08/15/18 16:00 99.5 105 20 163/94 (117) 94 Height (Feet): 5 Height (Inches): 6.00 Weight (Pounds): 150 General Appearance: no acute distress HEENT: normocephalic, atraumatic, anicteric, mucous membranes moist Respiratory/Chest: lungs clear, crackles/rales, rhonchi - bilaterally Cardiovascular: normal rate, regularly irregular, no gallop/murmur, no JVD Abdomen: normal bowel sounds, soft, non tender, no organomegaly, non distended Genitourinary: other - no lambert Extremities: no cyanosis Skin: no rash 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 FINDINGS: Lungs: Again seen are prominent interstitial markings throughout both lungs, likely associated with interstitial edema. This appears unchanged to slightly improved since the prior exam performed yesterday. No definite airspace consolidation. Pleural spaces: No significant pleural effusions. No evidence of pneumothorax. Heart: Cardiac silhouette is within normal limits. Mediastinum: No mediastinal widening or shift. Bones: No acute fracture. IMPRESSION: Pulmonary edema, unchanged to slightly improved. No airspace consolidation or pneumothorax. Chest x-ray = 07/16/18 - Impression: Bilateral interstitial disease, appearing similar to previous exam of 08/13/2018, May reflect ongoing interstitial edema versus chronic interstitial changes. Opacity at the left lung base, may reflect a small area of atelectasis or focal infiltrate. Microbiology Date/Time Source Procedure Growth Status 08/12/18 10:55 Blood Blood Culture - Final Staphylococcus Sp Coag Neg Complete 08/12/18 11:00 Nasal Nares MRSA Culture - Final NO METHICILLIN RESISTANT STAPH AUREUS... Complete 08/12/18 11:00 Urine,Clean Catch Urine Culture - Final Escherichia Coli Complete 08/12/18 11:00 Rectum VRE Culture - Final NO VANCOMYCIN RESISTANT ENTEROCOCCUS ... Complete Laboratory Tests Test 08/16/18 05:35 White Blood Count 8.7 K/UL (4.8-10.8) Red Blood Count 4.90 M/UL (4.20-5.40) Hemoglobin 13.4 G/DL (12.0-16.0) Hematocrit 40.2 % (37.0-47.0) Mean Corpuscular Volume 82 FL (80-99) Mean Corpuscular Hemoglobin 27.4 PG (27.0-31.0) Mean Corpuscular Hemoglobin Concent 33.4 G/DL (32.0-36.0) Red Cell Distribution Width 13.6 % (11.6-14.8) Platelet Count 180 K/UL (150-450) Mean Platelet Volume 9.8 FL (6.5-10.1) Neutrophils (%) (Auto) 74.6 % (45.0-75.0) Lymphocytes (%) (Auto) 14.8 % (20.0-45.0) L Monocytes (%) (Auto) 8.9 % (1.0-10.0) Eosinophils (%) (Auto) 0.7 % (0.0-3.0) Basophils (%) (Auto) 1.1 % (0.0-2.0) Prothrombin Time 12.0 SEC (9.30-11.50) H Prothromb Time International Ratio 1.1 (0.9-1.1) Sodium Level 136 MMOL/L (136-145) Potassium Level 3.1 MMOL/L (3.5-5.1) L Chloride Level 99 MMOL/L (98-107) Carbon Dioxide Level 30 MMOL/L (21-32) Anion Gap 7 mmol/L (5-15) Blood Urea Nitrogen 8 mg/dL (7-18) Creatinine 0.5 MG/DL (0.55-1.30) L Estimat Glomerular Filtration Rate mL/min (>60) Glucose Level 125 MG/DL (74-106) H Calcium Level 8.7 MG/DL (8.5-10.1) Pro-B-Type Natriuretic Peptide 800 pg/mL (0-125) H Current Medications Medications (Trade) Dose Ordered Sig/Eveline Route PRN Reason Start Time Stop Time Status Last Admin Dose Admin Albuterol/ Ipratropium (Albuterol/ Ipratropium) 3 ml QIDPRN PRN HHN Shortness of Breath 08/12/18 15:00 08/17/18 14:59 Ceftriaxone Sodium 1 gm/ Dextrose 50 ml @ 100 mls/hr Q24H IVPB 08/14/18 14:00 08/21/18 13:59 08/16/18 13:48 Dextrose (Dextrose 50%) 25 ml Q30M PRN IV Hypoglycemia 08/13/18 07:45 09/12/18 07:44 Dextrose (Dextrose 50%) 50 ml Q30M PRN IV Hypoglycemia 08/13/18 07:45 09/12/18 07:44 Enalaprilat (Vasotec) 2.5 mg EVERY 6 HOURS IV 08/12/18 18:00 09/11/18 17:59 08/16/18 11:38 Enoxaparin Sodium (Lovenox) 40 mg DAILY SUBQ 08/13/18 09:00 09/12/18 08:59 08/16/18 09:05 Insulin Aspart (NovoLOG) BEFORE MEALS AND HS SUBQ 08/13/18 11:30 09/12/18 11:29 08/16/18 11:31 Potassium Chloride 40 meq/ Dextrose/Sodium Chloride 1,020 ml @ 50 mls/hr [id number] IV 08/15/18 18:30 09/14/18 18:29 08/16/18 13:48 Jarrod Lopes MD Aug 16, 2018 14:51
[2018-08-16 15:45] LABS: INR 1.1 (0.9-1.1)
[2018-08-16 15:46] LABS: BASOPHILS % (AUTO) 1.2 % (0.0-2.0); EOSINOPHILS % (AUTO) 1.5 % (0.0-3.0); HEMATOCRIT 39.4 % (37.0-47.0); LYMPHOCYTES % (AUTO) 20.4 % (20.0-45.0); MEAN CORPUSCULAR VOLUME 82 FL (80-99); MONOCYTES % (AUTO) 11.2 % (1.0-10.0); NEUTROPHILS % (AUTO) 65.8 % (45.0-75.0); PLATELET COUNT 216 K/UL (150-450); RED BLOOD COUNT 4.79 M/UL (4.20-5.40); RED CELL DISTRIBUTION WIDTH 13.3 % (11.6-14.8); WHITE BLOOD COUNT 8.6 K/UL (4.8-10.8)
[2018-08-16 15:51] LABS: ANION GAP 8 mmol/L (5-15); BLOOD UREA NITROGEN 9 mg/dL (7-18); CALCIUM 8.6 MG/DL (8.5-10.1); CARBON DIOXIDE 29 MMOL/L (21-32); CHLORIDE 100 MMOL/L (98-107); CREATININE 0.5 MG/DL (0.55-1.30); POTASSIUM 3.4 MMOL/L (3.5-5.1); SODIUM 137 MMOL/L (136-145)
[2018-08-16 16:00] VITALS: BP 148/71
[2018-08-16 20:00] VITALS: BP 120/55
[2018-08-17] VITALS (10 sets, daily range): BP systolic 109–163; BP diastolic 64–102
[2018-08-17] MEDS: Enalaprilat 2.5mg/2ml Inj IV SCH ×4 (06:12→17:23)
[2018-08-17] MEDS: NovoLOG Insulin Flexpen SUBQ SCH ×4 (06:30→22:06)
[2018-08-17] MEDS: Enoxaparin 40mg Inj SUBQ SCH (08:29)
--- NOTE | 2018-08-17 10:02 | Pre-Procedure Note/Attestation ---
Pre-Procedure Note/Attestation Complete Prior to Procedure Planned Procedure: not applicable Procedure Narrative: egd/peg Indications for Procedure Pre-Operative Diagnosis: dysphagia Attestation I attest that I discussed the nature of the procedure; its benefits; risks and complications; and alternatives (and the risks and benefits of such alternatives ), prior to the procedure, with the patient (or the patient's legal textile designs sales representative). I attest that, if there was a reasonable possibility of needing a blood transfusion, the patient (or the patient's legal textile designs sales representative) was given the [facility] standardized written summary, pursuant to the Dustin Cris Blood Safety Act ([place] Health and Safety Code # 1645, as amended). I attest that I re-evaluated the patient just prior to the surgery and that there has been no change in the patient's H&P, except as documented below: Enzo Bush MD Aug 17, 2018 10:02
--- NOTE | 2018-08-17 10:03 | General Progress Note ---
Assessment/Plan Problem List: (1) HTN (hypertension) ICD Codes: I10 - HTN (hypertension) SNOMED: 08627257 (2) Failure to thrive SNOMED: 56564447 Qualifiers: Qualified Codes: R62.7 - Adult failure to thrive (3) Hyperlipemia ICD Codes: E78.5 - Hyperlipemia SNOMED: 58911199 (4) UTI (urinary tract infection) ICD Codes: N39.0 - Urinary tract infection, site not specified SNOMED: 37748602 Qualifiers: Qualified Codes: N39.0 - Urinary tract infection, site not specified Assessment: no consent yet for PEG left massages for the conservator swallow eval for today while pending PEG Diagnoses Results of Pharmacotherapy: patient lonny GT no family to consent d/w the pipe installer, will go with 2 md consult Subjective ROS Limited/Unobtainable: No Allergies: Coded Allergies: PENICILLINS (Unverified Allergy, Unknown, 12/20/13) Objective Last 24 Hour Vital Signs Date Time Temp Pulse Resp B/P (MAP) Pulse Ox O2 Delivery O2 Flow Rate FiO2 08/17/18 08:23 Nasal Cannula 2.0 08/17/18 08:21 95 Nasal Cannula 2.0 28 08/17/18 08:21 Nasal Cannula 2.0 28 08/17/18 08:21 94 16 Nasal Cannula 2.0 28 08/17/18 08:00 98.0 84 20 134/66 (88) 96 08/17/18 06:12 147/69 08/17/18 04:00 98.2 84 20 147/69 (95) 97 08/17/18 00:00 109/57 08/17/18 00:00 98.1 87 20 109/67 (81) 98 08/16/18 21:00 Nasal Cannula 2.0 08/16/18 20:00 98.4 83 20 120/55 (76) 98 08/16/18 18:45 Nasal Cannula 2.0 28 08/16/18 18:45 91 16 Nasal Cannula 2.0 28 08/16/18 18:45 95 Nasal Cannula 2.0 28 08/16/18 17:27 148/71 08/16/18 16:00 98.4 83 18 148/71 (96) 95 08/16/18 12:00 98.1 94 18 163/71 (101) 94 08/16/18 11:38 163/71 Intake and Output 08/16/18 08/17/18 19:00 07:00 Intake Total 525 ml 600 ml Balance 525 ml 600 ml IV Total 525 ml 600 ml # Voids 3 4 Laboratory Tests 08/16/18 15:10: White Blood Count 8.6, Red Blood Count 4.79, Hemoglobin 13.0, Hematocrit 39.4, Mean Corpuscular Volume 82, Mean Corpuscular Hemoglobin 27.2, Mean Corpuscular Hemoglobin Concent 33.1, Red Cell Distribution Width 13.3, Platelet Count 216, Mean Platelet Volume 10.3H, Neutrophils (%) (Auto) 65.8, Lymphocytes (%) (Auto) 20.4, Monocytes (%) (Auto) 11.2H, Eosinophils (%) (Auto) 1.5, Basophils (%) ( Auto) 1.2, Prothrombin Time 11.9H, Prothromb Time International Ratio 1.1, Activated Partial Thromboplast Time 30, Sodium Level 137, Potassium Level 3.4L, Chloride Level 100, Carbon Dioxide Level 29, Anion Gap 8, Blood Urea Nitrogen 9 , Creatinine 0.5L, Estimat Glomerular Filtration Rate , Glucose Level 115H, Calcium Level 8.6, Vancomycin Level Trough 0.8L Height (Feet): 5 Height (Inches): 6.00 Weight (Pounds): 150 General Appearance: no apparent distress EENT: normal ENT inspection Neck: supple Cardiovascular: normal rate Respiratory/Chest: lungs clear Abdomen: normal bowel sounds, non tender, soft Extremities: non-tender Enzo Bush MD Aug 17, 2018 10:03
--- NOTE | 2018-08-17 10:12 | Pulmonology Progress Note ---
Assessment/Plan Assessment/Plan IMPRESSION: 1. UTI. 2. Doubt pneumonia, CXR suggestive of pulmonary edema (mild) vs chronic changes. 3. Hypertension. DISCUSSION: I do not suspect pneumonia given lack of hypoxemia or clinical symptoms as well as fairly unremarkable chest x-ray. 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 Subjective Interval Events: None new Constitutional: Reports: no symptoms HEENT: Repors: no symptoms Respiratory: Reports: no symptoms Cardiovascular: Reports: no symptoms Gastrointestinal/Abdominal: Reports: no symptoms Allergies: Coded Allergies: PENICILLINS (Unverified Allergy, Unknown, 12/20/13) Objective Last 24 Hour Vital Signs Date Time Temp Pulse Resp B/P (MAP) Pulse Ox O2 Delivery O2 Flow Rate FiO2 08/17/18 08:23 Nasal Cannula 2.0 08/17/18 08:21 95 Nasal Cannula 2.0 28 08/17/18 08:21 Nasal Cannula 2.0 28 08/17/18 08:21 94 16 Nasal Cannula 2.0 28 08/17/18 08:00 98.0 84 20 134/66 (88) 96 08/17/18 06:12 147/69 08/17/18 04:00 98.2 84 20 147/69 (95) 97 08/17/18 00:00 109/57 08/17/18 00:00 98.1 87 20 109/67 (81) 98 08/16/18 21:00 Nasal Cannula 2.0 08/16/18 20:00 98.4 83 20 120/55 (76) 98 08/16/18 18:45 Nasal Cannula 2.0 28 08/16/18 18:45 91 16 Nasal Cannula 2.0 28 08/16/18 18:45 95 Nasal Cannula 2.0 28 08/16/18 17:27 148/71 08/16/18 16:00 98.4 83 18 148/71 (96) 95 08/16/18 12:00 98.1 94 18 163/71 (101) 94 08/16/18 11:38 163/71 Intake and Output 08/16/18 08/17/18 19:00 07:00 Intake Total 525 ml 600 ml Balance 525 ml 600 ml IV Total 525 ml 600 ml # Voids 3 4 General Appearance: no acute distress HEENT: normocephalic Respiratory/Chest: chest wall non-tender Cardiovascular: normal peripheral pulses Abdomen: normal bowel sounds Laboratory Tests 08/16/18 15:10: White Blood Count 8.6, Red Blood Count 4.79, Hemoglobin 13.0, Hematocrit 39.4, Mean Corpuscular Volume 82, Mean Corpuscular Hemoglobin 27.2, Mean Corpuscular Hemoglobin Concent 33.1, Red Cell Distribution Width 13.3, Platelet Count 216, Mean Platelet Volume 10.3H, Neutrophils (%) (Auto) 65.8, Lymphocytes (%) (Auto) 20.4, Monocytes (%) (Auto) 11.2H, Eosinophils (%) (Auto) 1.5, Basophils (%) ( Auto) 1.2, Prothrombin Time 11.9H, Prothromb Time International Ratio 1.1, Activated Partial Thromboplast Time 30, Sodium Level 137, Potassium Level 3.4L, Chloride Level 100, Carbon Dioxide Level 29, Anion Gap 8, Blood Urea Nitrogen 9 , Creatinine 0.5L, Estimat Glomerular Filtration Rate , Glucose Level 115H, Calcium Level 8.6, Vancomycin Level Trough 0.8L Current Medications Medications (Trade) Dose Ordered Sig/Eveline Route PRN Reason Start Time Stop Time Status Last Admin Dose Admin Albuterol/ Ipratropium (Albuterol/ Ipratropium) 3 ml QIDPRN PRN HHN Shortness of Breath 08/12/18 15:00 08/17/18 14:59 Ceftriaxone Sodium 1 gm/ Dextrose 50 ml @ 100 mls/hr Q24H IVPB 08/14/18 14:00 08/21/18 13:59 08/16/18 13:48 Dextrose (Dextrose 50%) 25 ml Q30M PRN IV Hypoglycemia 08/13/18 07:45 09/12/18 07:44 Dextrose (Dextrose 50%) 50 ml Q30M PRN IV Hypoglycemia 08/13/18 07:45 09/12/18 07:44 Enalaprilat (Vasotec) 2.5 mg EVERY 6 HOURS IV 08/12/18 18:00 09/11/18 17:59 08/17/18 06:12 Enoxaparin Sodium (Lovenox) 40 mg DAILY SUBQ 08/13/18 09:00 09/12/18 08:59 08/16/18 09:05 Insulin Aspart (NovoLOG) BEFORE MEALS AND HS SUBQ 08/13/18 11:30 09/12/18 11:29 08/16/18 11:31 Potassium Chloride 40 meq/ Dextrose/Sodium Chloride 1,020 ml @ 50 mls/hr [id number] IV 08/15/18 18:30 09/14/18 18:29 08/16/18 13:48 Babar Sevilla MD Aug 17, 2018 10:12
--- NOTE | 2018-08-17 10:17 | Anethesia Preoperative Eval ---
Anesthesia Pre-op PMH/ROS General Date of Evaluation: Aug 17, 2018 Time of Evaluation: 10:15 Anesthesiologist: Rosy Lambert CRNA ASA Score: ASA 3 Mallampati Score Class I : Soft palate, uvula, fauces, pillars visible Class II: Soft palate, uvula, fauces visible Class III: Soft palate, base of uvula visible Class IV: Only hard plate visible Mallampati Classification: Class II Surgeon: Rachelle Diagnosis: FTT, dehydration Surgical Procedure: Diagnostic EGD, colonoscopy Anesthesia History: none Family History: no anesthesia problems Allergies: Coded Allergies: PENICILLINS (Unverified Allergy, Unknown, 12/20/13) Patient NPO?: Yes NPO Date: Aug 12, 2018 NPO Time: 0000 Past Medical History Cardiovascular: Reports: HTN, other - CHF, hyperlipidemia; Denies: CAD, PR, valve dz, arrhythmia Pulmonary: Reports: COPD, other - RAD, questionable pneumonia; Denies: asthma, MAAME Gastrointestinal/Genitourinary: Denies: GERD, CRI, ESRD, other Neurologic/Psychiatric: Reports: other - Schizophrenia; Denies: dementia, CVA, depression/anxiety, TIA Endocrine: Reports: DM; Denies: hypothyroidism, steroids, other HEENT: Denies: cataract (L), cataract (R), glaucoma, [place] (L), [place] (R), other Hematology/Immune: Reports: anemia; Denies: DVT, bleeding disorder, other Musculoskeletal/Integumentary: Reports: OA, other - osteoporosis; Denies: RA, DJD, DDD, edema PMH Narrative: as noted above PSxH Narrative: see H & P Anesthesia Pre-op Phys. Exam Physician Exam Last Vital Signs Date Time Temp Pulse Resp B/P (MAP) Pulse Ox O2 Delivery O2 Flow Rate FiO2 08/17/18 08:23 Nasal Cannula 2.0 08/17/18 08:21 95 28 08/17/18 08:21 94 16 08/17/18 08:00 98.0 134/66 (88) Constitutional: NAD Neurologic: other - dementia Cardiovascular: RRR Respiratory: CTA Gastrointestinal: S/NT/ND Airway Exam Mallampati Score: Class II MO: full Neck: no limitations TMD: > 3 FB Teeth: missing, other - edentuous Anesthesia Pre-op A/P Labs Hematology Test 08/16/18 15:10 White Blood Count 8.6 K/UL (4.8-10.8) Red Blood Count 4.79 M/UL (4.20-5.40) Hemoglobin 13.0 G/DL (12.0-16.0) Hematocrit 39.4 % (37.0-47.0) Mean Corpuscular Volume 82 FL (80-99) Mean Corpuscular Hemoglobin 27.2 PG (27.0-31.0) Mean Corpuscular Hemoglobin Concent 33.1 G/DL (32.0-36.0) Red Cell Distribution Width 13.3 % (11.6-14.8) Platelet Count 216 K/UL (150-450) Mean Platelet Volume 10.3 FL (6.5-10.1) H Neutrophils (%) (Auto) 65.8 % (45.0-75.0) Lymphocytes (%) (Auto) 20.4 % (20.0-45.0) Monocytes (%) (Auto) 11.2 % (1.0-10.0) H Eosinophils (%) (Auto) 1.5 % (0.0-3.0) Basophils (%) (Auto) 1.2 % (0.0-2.0) Coagulation Test 08/16/18 15:10 Prothrombin Time 11.9 SEC (9.30-11.50) H Prothromb Time International Ratio 1.1 (0.9-1.1) Activated Partial Thromboplast Time 30 SEC (23-33) Chemistry Test 08/16/18 15:10 Sodium Level 137 MMOL/L (136-145) Potassium Level 3.4 MMOL/L (3.5-5.1) L Chloride Level 100 MMOL/L (98-107) Carbon Dioxide Level 29 MMOL/L (21-32) Anion Gap 8 mmol/L (5-15) Blood Urea Nitrogen 9 mg/dL (7-18) Creatinine 0.5 MG/DL (0.55-1.30) L Estimat Glomerular Filtration Rate mL/min (>60) Glucose Level 115 MG/DL (74-106) H Calcium Level 8.6 MG/DL (8.5-10.1) Studies Pre-op Studies: CXR - (B) interstitial edema; LLL opacity Risk Assessment & Plan Assessment: ASA 3, ok to proceed Plan: MAC Status Change Before Surgery: No Pre-Antibiotics Given Within 1 Hr of Incision: No Rosy Lambert CRNA Aug 17, 2018 10:17
[2018-08-17] MEDS ORDERED: fentaNYL 100 mcg/2 mL IV ONE (10:24)
[2018-08-17] MEDS ORDERED: Lidocaine 1% MPF 10mg/ml 5ml ONE (10:30)
[2018-08-17] MEDS ORDERED: Propofol 200mg/20ml IV ONE (10:30)
[2018-08-17] MEDS ORDERED: NS 500ML IVPB ONE (10:30)
--- NOTE | 2018-08-17 10:49 | Endoscopy Procedure Note ---
Endoscopy Procedure Note General Indication for Procedure: dysphagia Procedures Performed: EGD, PEG Operative Findings/Diagnosis: gastritis Specimen: yes Pt Tolerated Procedure Well: Yes Estimated Blood Loss: none Anesthesia Anesthesiologist: reena Anesthesia: MAC Inserted Devices Implant(s) used?: No GI Core Measures 50 yrs or older w/o bx or poly: Not Applicable 10yrs. F/U not recommended: Not Applicable Enzo Bush MD Aug 17, 2018 10:49
--- NOTE | 2018-08-17 11:08 | Immediate Post-Op Evaluation ---
Immediate Post-Op Evalulation Immediate Post-Op Evalulation Procedure: PEG insertion Date of Evaluation: Aug 17, 2018 Time of Evaluation: 10:56 IV Fluids: 0.9 NS 50 ml Blood Pressure Systolic: 153 Blood Pressure Diastolic: 71 Pulse Rate: 76 Respiratory Rate: 24 O2 Sat by Pulse Oximetry: 97 Temperature (Fahrenheit): 97.7 Pain Score (1-10): 0 Nausea: No Vomiting: No Complications none Patient Status: awake, reacts, patent Hydration Status: adequate Given Within 1 Hr of Incision: Rosy Maldonado CRNA Aug 17, 2018 11:08
[2018-08-17] MEDS: D5 1/2NS w/KCl 40meq 1000ml 1,000 ML IV SCH (11:44)
[2018-08-17] MEDS: cefTRIAXone 1 GM in D5W 50 ML IVPB SCH (14:11)
--- NOTE | 2018-08-17 16:30 | Procedure Note ---
DATE OF PROCEDURE: 08/17/2018 SURGEON: Enzo Bush M.D. PROCEDURE: Upper endoscopy with biopsy and PEG placement. ANESTHESIA: Per Rosy WOODS INSTRUMENT: Olympus adult flexible upper endoscope. INDICATION: Gastritis. REASON FOR PROCEDURE: The procedure, risks, benefits, and possible consequences, including hemorrhage, aspiration, perforation and infection, and alternative treatments, were explained to the patient/legal guardian by Dr. Enzo Bush and the patient/legal guardian understood and accepted these risks. DESCRIPTION OF PROCEDURE: After informed consent was obtained and the patient was adequately sedated, Olympus upper endoscope was advanced from the mouth to the second portion of duodenum and retroflexion was performed in the stomach. The patient had diffuse gastritis suspicious for H. pylori infection. Biopsy from antrum was obtained to rule out H. pylori infection. The patient also had evidence of hiatal hernia. Then, under endoscopic guidance under sterile condition, a 20-Slovenian pull type of G-tube was successfully placed in the epigastric area. The distance from the tip of the tube to skin was about 3 cm in size. The patient tolerated the procedure very well without any complication. SUMMARY OF FINDINGS: 1. Gastritis, status post biopsy. 2. Hiatal hernia. 3. Status post successful PEG placement. RECOMMENDATIONS: 1. Abdominal binder. 2. Elevate the head of the bed at all times. 3. G-tube flush. 4. G-tube care. 5. Start tube feeding later today. 6. The patient is currently on ceftriaxone. I want to thank Dr. Mistry for this kind referral. Enzo Bush M.D. DR: ISMAEL JOB#: [id number] CC: Reinaldo Mistry M.D.; Fax#: [phone]
--- NOTE | 2018-08-17 18:56 | General Progress Note ---
Assessment/Plan Problem List: (1) CHF (congestive heart failure) ICD Codes: I50.9 - Heart failure, unspecified SNOMED: 79822382 (2) Dysphagia ICD Codes: R13.10 - Dysphagia, unspecified SNOMED: 18266591, 175634289 (3) CVA, old, aphasia ICD Codes: I69.320 - Aphasia following cerebral infarction SNOMED: 027606786 (4) Failure to thrive SNOMED: 85810453 Qualifiers: Qualified Codes: R62.7 - Adult failure to thrive (5) Bilateral pneumonia ICD Codes: J18.9 - Pneumonia, unspecified organism SNOMED: 200584561 Qualifiers: Qualified Codes: J18.9 - Pneumonia, unspecified organism (6) HTN (hypertension) ICD Codes: I10 - HTN (hypertension) SNOMED: 29703770 Assessment: peg done unable to sign, aphasic rx for pneumonia and chf, repeat cxr reviewed, dc polan for ecf Subjective ROS Limited/Unobtainable: Yes Allergies: Coded Allergies: PENICILLINS (Unverified Allergy, Unknown, 12/20/13) Objective Last 24 Hour Vital Signs Date Time Temp Pulse Resp B/P (MAP) Pulse Ox O2 Delivery O2 Flow Rate FiO2 08/17/18 17:23 153/64 08/17/18 16:00 98.0 89 17 153/64 (93) 95 08/17/18 12:02 144/62 08/17/18 12:00 97.8 81 19 144/102 (116) 97 08/17/18 11:20 97.6 84 23 149/70 96 Nasal Cannula 2 08/17/18 11:10 82 24 155/74 96 Nasal Cannula 2 08/17/18 11:08 76 24 97 08/17/18 11:05 79 22 163/64 94 Nasal Cannula 2 08/17/18 10:56 97.7 72 18 153/71 97 Nasal Cannula 2 08/17/18 08:23 Nasal Cannula 2.0 08/17/18 08:21 95 Nasal Cannula 2.0 28 08/17/18 08:21 Nasal Cannula 2.0 28 08/17/18 08:21 94 16 Nasal Cannula 2.0 28 08/17/18 08:00 98.0 84 20 134/66 (88) 96 08/17/18 06:12 147/69 08/17/18 04:00 98.2 84 20 147/69 (95) 97 08/17/18 00:00 109/57 08/17/18 00:00 98.1 87 20 109/67 (81) 98 08/16/18 21:00 Nasal Cannula 2.0 08/16/18 20:00 98.4 83 20 120/55 (76) 98 Intake and Output 08/16/18 08/17/18 18:59 06:59 Intake Total 525 ml 600 ml Balance 525 ml 600 ml IV Total 525 ml 600 ml # Voids 3 4 Height (Feet): 5 Height (Inches): 6.00 Weight (Pounds): 150 General Appearance: no apparent distress, confused EENT: normal ENT inspection Neck: normal alignment Cardiovascular: normal rate, regular rhythm Respiratory/Chest: lungs clear Abdomen: non tender Edema: no edema noted Arm (L), no edema noted Arm (R), no edema noted Leg (L), no edema noted Leg (R), no edema noted Pedal (L), no edema noted Pedal (R), no edema noted Generalized Neurologic: disoriented Reinaldo Mistry MD Aug 17, 2018 18:56
[2018-08-18] VITALS: BP 130/60
[2018-08-18 04:00] VITALS: BP 154/74
[2018-08-18] MEDS: NovoLOG Insulin Flexpen SUBQ SCH ×2 (05:55→12:11)
[2018-08-18] MEDS: Enalaprilat 2.5mg/2ml Inj IV SCH ×3 (06:54→12:11)
[2018-08-18 07:41] LABS: EOSINOPHILS % (AUTO) 2.8 % (0.0-3.0); HEMATOCRIT 41.1 % (37.0-47.0); HEMOGLOBIN 13.4 G/DL (12.0-16.0); LYMPHOCYTES % (AUTO) 13.2 % (20.0-45.0); MEAN CORPUSCULAR VOLUME 83 FL (80-99); MONOCYTES % (AUTO) 9.8 % (1.0-10.0); NEUTROPHILS % (AUTO) 73.2 % (45.0-75.0); PLATELET COUNT 196 K/UL (150-450); RED BLOOD COUNT 4.94 M/UL (4.20-5.40); RED CELL DISTRIBUTION WIDTH 13.8 % (11.6-14.8); WHITE BLOOD COUNT 8.5 K/UL (4.8-10.8)
[2018-08-18 07:52] LABS: ANION GAP 8 mmol/L (5-15); BLOOD UREA NITROGEN 9 mg/dL (7-18); CALCIUM 9.3 MG/DL (8.5-10.1); CARBON DIOXIDE 30 MMOL/L (21-32); CHLORIDE 99 MMOL/L (98-107); CREATININE 0.5 MG/DL (0.55-1.30); SODIUM 137 MMOL/L (136-145)
[2018-08-18 08:00] VITALS: BP 161/60
[2018-08-18] MEDS: Enoxaparin 40mg Inj SUBQ SCH (08:34)
[2018-08-18] MEDS: D5 1/2NS w/KCl 40meq 1000ml 1,000 ML IV SCH (08:34)
--- NOTE | 2018-08-18 10:06 | Pulmonology Progress Note ---
Assessment/Plan Assessment/Plan IMPRESSION: 1. UTI. 2. Doubt pneumonia, CXR suggestive of pulmonary edema (mild) vs chronic changes. 3. Hypertension. DISCUSSION: I do not suspect pneumonia given lack of hypoxemia or clinical symptoms as well as fairly unremarkable chest x-ray. I will follow as editor in chief, antibiotics per ID. Subjective Interval Events: S/p PEG Constitutional: Reports: no symptoms HEENT: Repors: no symptoms Respiratory: Reports: no symptoms Cardiovascular: Reports: no symptoms Gastrointestinal/Abdominal: Reports: no symptoms Genitourinary: Reports: no symptoms Allergies: Coded Allergies: PENICILLINS (Unverified Allergy, Unknown, 12/20/13) Objective Last 24 Hour Vital Signs Date Time Temp Pulse Resp B/P (MAP) Pulse Ox O2 Delivery O2 Flow Rate FiO2 08/18/18 06:54 154/74 08/18/18 04:00 98.5 98 18 154/74 (100) 96 08/18/18 00:00 97.6 96 16 130/60 (83) 95 08/18/18 00:00 130/60 08/17/18 21:00 Nasal Cannula 2.0 08/17/18 20:24 78 16 Nasal Cannula 2.0 28 08/17/18 20:23 Nasal Cannula 2.0 28 08/17/18 20:23 98 Nasal Cannula 2.0 28 08/17/18 20:00 98.7 95 16 141/67 (91) 98 08/17/18 17:23 153/64 08/17/18 16:00 98.0 89 17 153/64 (93) 95 08/17/18 12:02 144/62 08/17/18 12:00 97.8 81 19 144/102 (116) 97 08/17/18 11:20 97.6 84 23 149/70 96 Nasal Cannula 2 08/17/18 11:10 82 24 155/74 96 Nasal Cannula 2 08/17/18 11:08 76 24 97 08/17/18 11:05 79 22 163/64 94 Nasal Cannula 2 08/17/18 10:56 97.7 72 18 153/71 97 Nasal Cannula 2 Intake and Output 08/17/18 08/18/18 19:00 07:00 Intake Total 775 ml 960 ml Balance 775 ml 960 ml Intake Oral 0 ml Free Water 150 ml 300 ml IV Total 475 ml 500 ml Tube Feeding 150 ml 160 ml # Voids 2 3 General Appearance: no acute distress HEENT: normocephalic Respiratory/Chest: chest wall non-tender, lungs clear Cardiovascular: normal peripheral pulses, normal rate Abdomen: normal bowel sounds, soft, non tender Laboratory Tests 08/18/18 05:51: White Blood Count 8.5, Red Blood Count 4.94, Hemoglobin 13.4, Hematocrit 41.1, Mean Corpuscular Volume 83, Mean Corpuscular Hemoglobin 27.0, Mean Corpuscular Hemoglobin Concent 32.5, Red Cell Distribution Width 13.8, Platelet Count 196, Mean Platelet Volume 9.8, Neutrophils (%) (Auto) 73.2, Lymphocytes (%) (Auto) 13.2L, Monocytes (%) (Auto) 9.8, Eosinophils (%) (Auto) 2.8, Basophils (%) (Auto ) 1.0, Sodium Level 137, Potassium Level 4.0, Chloride Level 99, Carbon Dioxide Level 30, Anion Gap 8, Blood Urea Nitrogen 9, Creatinine 0.5L, Estimat Glomerular Filtration Rate , Glucose Level 105, Calcium Level 9.3 Current Medications Medications (Trade) Dose Ordered Sig/Eveline Route PRN Reason Start Time Stop Time Status Last Admin Dose Admin Ceftriaxone Sodium 1 gm/ Dextrose 50 ml @ 100 mls/hr Q24H IVPB 08/14/18 14:00 08/21/18 13:59 08/17/18 14:11 Dextrose (Dextrose 50%) 25 ml Q30M PRN IV Hypoglycemia 08/13/18 07:45 09/12/18 07:44 Dextrose (Dextrose 50%) 50 ml Q30M PRN IV Hypoglycemia 08/13/18 07:45 09/12/18 07:44 Dextrose/ Electrolytes 1,000 ml @ 50 mls/hr Q20H IV 08/17/18 12:00 09/16/18 11:59 08/18/18 08:34 Enalaprilat (Vasotec) 2.5 mg EVERY 6 HOURS IV 08/12/18 18:00 09/11/18 17:59 08/18/18 06:54 Enoxaparin Sodium (Lovenox) 40 mg DAILY SUBQ 08/13/18 09:00 09/12/18 08:59 08/18/18 08:34 Insulin Aspart (NovoLOG) BEFORE MEALS AND HS SUBQ 08/13/18 11:30 09/12/18 11:29 08/18/18 05:55 Babar Sevilla MD Aug 18, 2018 10:06
--- NOTE | 2018-08-18 10:25 | GI Progress Note ---
Assessment/Plan Problems: (1) CVA, old, aphasia ICD Codes: I69.320 - Aphasia following cerebral infarction SNOMED: 975956303 (2) CHF (congestive heart failure) ICD Codes: I50.9 - Heart failure, unspecified SNOMED: 33578546 (3) Dysphagia ICD Codes: R13.10 - Dysphagia, unspecified SNOMED: 90324323, 978372558 (4) Failure to thrive SNOMED: 63701160 Qualifiers: Qualified Codes: R62.7 - Adult failure to thrive Status: stable, progressing Status Narrative Discussed with Dr. Bush Assessment/Plan SUMMARY OF FINDINGS: 1. Gastritis, status post biopsy. 2. Hiatal hernia. 3. Status post successful PEG placement. RECOMMENDATIONS: 1. Abdominal binder. 2. Elevate the head of the bed at all times. 3. G-tube flush. 4. G-tube care. 5. Start tube feeding later today. 6. The patient is currently on ceftriaxone. Supportive care dc planning The patient was seen and examined at bedside and all new and available data was reviewed in the patients chart. I agree with the above findings, impression and plan. (Patient seen earlier today. Signature stamp does not reflect patient encounter time.). - Enzo Bush MD Subjective Subjective Limited Objective Last 24 Hour Vital Signs Date Time Temp Pulse Resp B/P (MAP) Pulse Ox O2 Delivery O2 Flow Rate FiO2 08/18/18 06:54 154/74 08/18/18 04:00 98.5 98 18 154/74 (100) 96 08/18/18 00:00 97.6 96 16 130/60 (83) 95 08/18/18 00:00 130/60 08/17/18 21:00 Nasal Cannula 2.0 08/17/18 20:24 78 16 Nasal Cannula 2.0 28 08/17/18 20:23 Nasal Cannula 2.0 28 08/17/18 20:23 98 Nasal Cannula 2.0 28 08/17/18 20:00 98.7 95 16 141/67 (91) 98 08/17/18 17:23 153/64 08/17/18 16:00 98.0 89 17 153/64 (93) 95 08/17/18 12:02 144/62 08/17/18 12:00 97.8 81 19 144/102 (116) 97 08/17/18 11:20 97.6 84 23 149/70 96 Nasal Cannula 2 08/17/18 11:10 82 24 155/74 96 Nasal Cannula 2 08/17/18 11:08 76 24 97 08/17/18 11:05 79 22 163/64 94 Nasal Cannula 2 08/17/18 10:56 97.7 72 18 153/71 97 Nasal Cannula 2 Intake and Output 08/17/18 08/18/18 19:00 07:00 Intake Total 775 ml 960 ml Balance 775 ml 960 ml Intake Oral 0 ml Free Water 150 ml 300 ml IV Total 475 ml 500 ml Tube Feeding 150 ml 160 ml # Voids 2 3 Laboratory Tests Test 08/18/18 05:51 White Blood Count 8.5 K/UL (4.8-10.8) Red Blood Count 4.94 M/UL (4.20-5.40) Hemoglobin 13.4 G/DL (12.0-16.0) Hematocrit 41.1 % (37.0-47.0) Mean Corpuscular Volume 83 FL (80-99) Mean Corpuscular Hemoglobin 27.0 PG (27.0-31.0) Mean Corpuscular Hemoglobin Concent 32.5 G/DL (32.0-36.0) Red Cell Distribution Width 13.8 % (11.6-14.8) Platelet Count 196 K/UL (150-450) Mean Platelet Volume 9.8 FL (6.5-10.1) Neutrophils (%) (Auto) 73.2 % (45.0-75.0) Lymphocytes (%) (Auto) 13.2 % (20.0-45.0) L Monocytes (%) (Auto) 9.8 % (1.0-10.0) Eosinophils (%) (Auto) 2.8 % (0.0-3.0) Basophils (%) (Auto) 1.0 % (0.0-2.0) Sodium Level 137 MMOL/L (136-145) Potassium Level 4.0 MMOL/L (3.5-5.1) Chloride Level 99 MMOL/L (98-107) Carbon Dioxide Level 30 MMOL/L (21-32) Anion Gap 8 mmol/L (5-15) Blood Urea Nitrogen 9 mg/dL (7-18) Creatinine 0.5 MG/DL (0.55-1.30) L Estimat Glomerular Filtration Rate mL/min (>60) Glucose Level 105 MG/DL (74-106) Calcium Level 9.3 MG/DL (8.5-10.1) Height (Feet): 5 Height (Inches): 6.00 Weight (Pounds): 150 General Appearance: no apparent distress Cardiovascular: normal rate Respiratory/Chest: normal breath sounds, no respiratory distress Abdominal Exam: normal bowel sounds, non tender, soft, GT site Extremities: non-tender Dax Bowden NP Aug 18, 2018 10:25
[2018-08-18 12:00] VITALS: BP 155/72
--- NOTE | 2018-08-18 12:55 | General Progress Note ---
Assessment/Plan Problem List: (1) CHF (congestive heart failure) ICD Codes: I50.9 - Heart failure, unspecified SNOMED: 62199786 (2) Dysphagia ICD Codes: R13.10 - Dysphagia, unspecified SNOMED: 27260026, 438634196 (3) CVA, old, aphasia ICD Codes: I69.320 - Aphasia following cerebral infarction SNOMED: 921317816 (4) Failure to thrive SNOMED: 39632876 Qualifiers: Qualified Codes: R62.7 - Adult failure to thrive (5) Bilateral pneumonia ICD Codes: J18.9 - Pneumonia, unspecified organism SNOMED: 824795090 Qualifiers: Qualified Codes: J18.9 - Pneumonia, unspecified organism (6) HTN (hypertension) ICD Codes: I10 - HTN (hypertension) SNOMED: 73921629 Assessment: peg done unable to sign, aphasic rx for pneumonia and chf, repeat cxr reviewed, dc plan for ecf facility no bed yet Subjective ROS Limited/Unobtainable: Yes Allergies: Coded Allergies: PENICILLINS (Unverified Allergy, Unknown, 12/20/13) Objective Last 24 Hour Vital Signs Date Time Temp Pulse Resp B/P (MAP) Pulse Ox O2 Delivery O2 Flow Rate FiO2 08/18/18 12:11 155/72 08/18/18 12:00 98.1 95 16 155/72 (99) 98 08/18/18 09:00 Nasal Cannula 2.0 08/18/18 08:00 98.6 101 16 161/60 (93) 97 08/18/18 06:54 154/74 08/18/18 04:00 98.5 98 18 154/74 (100) 96 08/18/18 00:00 97.6 96 16 130/60 (83) 95 08/18/18 00:00 130/60 08/17/18 21:00 Nasal Cannula 2.0 08/17/18 20:24 78 16 Nasal Cannula 2.0 28 08/17/18 20:23 Nasal Cannula 2.0 28 08/17/18 20:23 98 Nasal Cannula 2.0 28 08/17/18 20:00 98.7 95 16 141/67 (91) 98 08/17/18 17:23 153/64 08/17/18 16:00 98.0 89 17 153/64 (93) 95 Intake and Output 08/17/18 08/18/18 19:00 07:00 Intake Total 775 ml 960 ml Balance 775 ml 960 ml Intake Oral 0 ml Free Water 150 ml 300 ml IV Total 475 ml 500 ml Tube Feeding 150 ml 160 ml # Voids 2 3 Laboratory Tests 08/18/18 05:51: White Blood Count 8.5, Red Blood Count 4.94, Hemoglobin 13.4, Hematocrit 41.1, Mean Corpuscular Volume 83, Mean Corpuscular Hemoglobin 27.0, Mean Corpuscular Hemoglobin Concent 32.5, Red Cell Distribution Width 13.8, Platelet Count 196, Mean Platelet Volume 9.8, Neutrophils (%) (Auto) 73.2, Lymphocytes (%) (Auto) 13.2L, Monocytes (%) (Auto) 9.8, Eosinophils (%) (Auto) 2.8, Basophils (%) (Auto ) 1.0, Sodium Level 137, Potassium Level 4.0, Chloride Level 99, Carbon Dioxide Level 30, Anion Gap 8, Blood Urea Nitrogen 9, Creatinine 0.5L, Estimat Glomerular Filtration Rate , Glucose Level 105, Calcium Level 9.3 Height (Feet): 5 Height (Inches): 6.00 Weight (Pounds): 150 General Appearance: confused, agitated EENT: normal ENT inspection Neck: normal alignment Cardiovascular: regular rhythm Respiratory/Chest: lungs clear Abdomen: non tender, soft Edema: no edema noted Arm (L), no edema noted Arm (R), no edema noted Leg (L), no edema noted Leg (R), no edema noted Pedal (L), no edema noted Pedal (R), no edema noted Generalized Neurologic: other - r hemiplegia aphasic Reinaldo Mistry MD Aug 18, 2018 12:55
[2018-08-18] MEDS ORDERED: Cephalexin 500mg cap ORAL SCH (13:00)
[2018-08-18] MEDS ORDERED: GLUCERNA1500 ML PO (15:42)
[2018-08-18] MEDS: Cephalexin 500mg cap ORAL SCH ×2 (15:49→18:29)
[2018-08-18 16:00] VITALS: BP 148/68
--- NOTE | 2018-08-18 17:28 | Infectious Diseases Prog Note ---
Assessment/Plan Assessment/Plan ASSESSMENT/PLAN: 1. e.coli uti, pulmonary edema on chest x-ray, ?atx, less likely pneumonia, 1/4 nurse assessor blood cultures likely contaminant - iv ceftriaxone - day # 7 antibiotics - can transition to oral keflex 500 mg po bid x 3 days - plan on feeding tube soon - monitor labs and chest x-ray - d/w Dr. Mistry about abx 2. The patient has history of cardiac disease. It is unclear what type it is. She has had tachycardia. 3. The patient has history of hypertension. Blood pressure treatment per Dr. Lemus. 4. Hyperlipidemia or dyslipidemia. 5. Anemia. 6. Falls. 7. Osteoporosis. 8. Obesity. 9. Asthma. 10. COPD. 11. Schizophrenia. 12. Dementia. 13. Aspiration risk. 14. Tachycardia. 15. Past medical history is as noted. 16. Allergies to penicillin. Tolerates cephalosporins. 17. Social history is negative. 18. Family history is noncontributory. 19. MAR was noted. 20. Case was discussed with RN. 21. Case was discussed with Dr. Lemus. 22. Continue treatment per primary consultants. 23. Notes and records were noted. 24. Orders were entered. Subjective Constitutional: Denies: fever HEENT: Denies: congestion Respiratory: Denies: shortness of breath Cardiovascular: Denies: chest pain Gastrointestinal/Abdominal: Denies: nausea, vomiting, diarrhea Genitourinary: Reports: other - no lambert Neurologic: Denies: headache Psychiatric: Denies: depression Skin: Denies: rash Hematologic: Denies: bleeding Musculoskeletal: Denies: pain Allergies: Coded Allergies: PENICILLINS (Unverified Allergy, Unknown, 12/20/13) Objective Vital Signs Last 24 Hour Vital Signs Date Time Temp Pulse Resp B/P (MAP) Pulse Ox O2 Delivery O2 Flow Rate FiO2 08/18/18 12:11 155/72 08/18/18 12:00 98.1 95 16 155/72 (99) 98 08/18/18 09:00 Nasal Cannula 2.0 08/18/18 08:00 98.6 101 16 161/60 (93) 97 08/18/18 06:54 154/74 08/18/18 04:00 98.5 98 18 154/74 (100) 96 08/18/18 00:00 97.6 96 16 130/60 (83) 95 08/18/18 00:00 130/60 08/17/18 21:00 Nasal Cannula 2.0 08/17/18 20:24 78 16 Nasal Cannula 2.0 28 08/17/18 20:23 Nasal Cannula 2.0 28 08/17/18 20:23 98 Nasal Cannula 2.0 28 08/17/18 20:00 98.7 95 16 141/67 (91) 98 Height (Feet): 5 Height (Inches): 6.00 Weight (Pounds): 150 General Appearance: no acute distress HEENT: normocephalic, atraumatic, anicteric, mucous membranes moist Respiratory/Chest: lungs clear, normal breath sounds, no respiratory distress, no accessory muscle use, crackles/rales, rhonchi - bilaterally Cardiovascular: normal rate, regular rhythm, no gallop/murmur, no JVD Abdomen: normal bowel sounds, soft, non tender, no organomegaly Genitourinary: other - no lambert Extremities: no cyanosis Skin: no rash Neurologic/Psychiatric: manager paper II-XII grossly normal, alert, responsive Lymphatic: no neck adenopathy Musculoskeletal: no effusion Objective Chest x-ray - 08/13/18 - COMPARISON: 08/12/18 at 1128 hrs. FINDINGS: Lungs: Again seen are prominent interstitial markings throughout both lungs, likely associated with interstitial edema. This appears unchanged to slightly improved since the prior exam performed yesterday. No definite airspace consolidation. Pleural spaces: No significant pleural effusions. No evidence of pneumothorax. Heart: Cardiac silhouette is within normal limits. Mediastinum: No mediastinal widening or shift. Bones: No acute fracture. IMPRESSION: Pulmonary edema, unchanged to slightly improved. No airspace consolidation or pneumothorax. Chest x-ray = 07/16/18 - Impression: Bilateral interstitial disease, appearing similar to previous exam of 08/13/2018, May reflect ongoing interstitial edema versus chronic interstitial changes. Opacity at the left lung base, may reflect a small area of atelectasis or focal infiltrate. Microbiology Date/Time Source Procedure Growth Status 08/12/18 10:55 Blood Blood Culture - Final Staphylococcus Sp Coag Neg Complete 08/12/18 11:00 Nasal Nares MRSA Culture - Final NO METHICILLIN RESISTANT STAPH AUREUS... Complete 08/12/18 11:00 Urine,Clean Catch Urine Culture - Final Escherichia Coli Complete 08/12/18 11:00 Rectum VRE Culture - Final NO VANCOMYCIN RESISTANT ENTEROCOCCUS ... Complete Laboratory Tests Test 08/18/18 05:51 White Blood Count 8.5 K/UL (4.8-10.8) Red Blood Count 4.94 M/UL (4.20-5.40) Hemoglobin 13.4 G/DL (12.0-16.0) Hematocrit 41.1 % (37.0-47.0) Mean Corpuscular Volume 83 FL (80-99) Mean Corpuscular Hemoglobin 27.0 PG (27.0-31.0) Mean Corpuscular Hemoglobin Concent 32.5 G/DL (32.0-36.0) Red Cell Distribution Width 13.8 % (11.6-14.8) Platelet Count 196 K/UL (150-450) Mean Platelet Volume 9.8 FL (6.5-10.1) Neutrophils (%) (Auto) 73.2 % (45.0-75.0) Lymphocytes (%) (Auto) 13.2 % (20.0-45.0) L Monocytes (%) (Auto) 9.8 % (1.0-10.0) Eosinophils (%) (Auto) 2.8 % (0.0-3.0) Basophils (%) (Auto) 1.0 % (0.0-2.0) Sodium Level 137 MMOL/L (136-145) Potassium Level 4.0 MMOL/L (3.5-5.1) Chloride Level 99 MMOL/L (98-107) Carbon Dioxide Level 30 MMOL/L (21-32) Anion Gap 8 mmol/L (5-15) Blood Urea Nitrogen 9 mg/dL (7-18) Creatinine 0.5 MG/DL (0.55-1.30) L Estimat Glomerular Filtration Rate mL/min (>60) Glucose Level 105 MG/DL (74-106) Calcium Level 9.3 MG/DL (8.5-10.1) Current Medications Medications (Trade) Dose Ordered Sig/Eveline Route PRN Reason Start Time Stop Time Status Last Admin Dose Admin Cephalexin (Keflex) 500 mg Q6HR ORAL 08/18/18 13:04 08/25/18 13:03 4/18/19 15:49 Enoxaparin Sodium (Lovenox) 40 mg DAILY SUBQ 08/13/18 09:00 09/12/18 08:59 08/18/18 08:34 Olanzapine (ZyPREXA) 5 mg DAILY ORAL 08/18/18 13:00 09/17/18 12:59 08/18/18 15:49 Jarrod Lopes MD Aug 18, 2018 17:28
--- NOTE | 2018-08-19 14:40 | Discharge Summary ---
Discharge Summary Discharge Summary _ DATE OF ADMISSION: 08/12/2018 DATE OF DISCHARGE: 08/18/2018 DISCHARGED BY: Dr. Reinaldo Mistry CONSULTANTS: Dr. Jarrod Sevilla BRIEF HOSPITAL COURSE: Patient is an 87-year-old female, who presented to ED for G-tube insertion. Patient apparently had a NG-tube placed and apparently was pulled out. ER physician has reached out to the Conservator to address the possible insertion of G-tube. At ED, blood work showed WBC of 12, hemoglobin and hematocrit were stable. Electrolytes were normal. Urinalysis showed 3+ protein, 3+ ketones, negative nitrite, +1 leukocyte esterase, 2-4 RBC and 5-10 WBC. EKG showed sinus tachycardia with no acute changes. Chest x-ray showed bilateral infiltrates. He was admitted sepsis, secondary to UTI and pneumonia. She was started on cefepime and Levaquin at the ED. ID was consulted. She was continued on cefepime and Levaquin. Flagyl was added for anaerobic coverage. She was given IV hydration. She was given Lovenox for DVT prophylaxis. Social service was consulted to reach out to [facility] regarding G[facility]tube placement. Blood culture showed coagulase-negative staph, possibly contaminant. Urine culture with growth of E. coli. Antibiotic was changed to IV ceftriaxone. On 08/17/2018, she underwent EGD with PEG tube placement. Findings showed gastritis and hiatal hernia. Abdominal binder was placed. She was eventually started on G-tube feeding. She was eventually discharged back to [facility]. FINAL DIAGNOSES: Dysphagia, status post EGD with PEG tube placement CVA with aphasia Failure to thrive Bilateral pneumonia Chronic CHF Hypertension E. coli UTI Gastritis Hiatal hernia DISPOSITION: Patient was discharged to a SNF. DISCHARGE MEDICATIONS: Refer to Discharge Medication List. I have been assigned to complete a discharge summary on this account, I was not involved with the patient's management. Andreia Palomares NP Aug 19, 2018 14:40
== END 2018-08-18 19:15 | DRG 871 ==
LOC: EDBD 10:25 → EMR 10:45 → EDBEDREQ 13:54 → 3E 14:03 → EDBEDREQ 14:22
PROC: 0DB78ZX Excision of Stomach, Pylorus, Via Natural or Artificial Opening Endoscopic, Diagnostic (ICD-10-PCS; principal; 2018-08-17 10:41)
PROC: 0DH63UZ Insertion of Feeding Device into Stomach, Percutaneous Approach (ICD-10-PCS; principal; 2018-08-17 10:41)
DX: A41.9 Sepsis, unspecified organism (principal); J18.9 Pneumonia, unspecified organism; N39.0 Urinary tract infection, site not specified; I50.1 Left ventricular failure, unspecified; R62.7 Adult failure to thrive; Z68.24 Body mass index [BMI] 24.0-24.9, adult; R13.10 Dysphagia, unspecified; I10 Essential (primary) hypertension; K44.9 Diaphragmatic hernia without obstruction or gangrene; I69.320 Aphasia following cerebral infarction; I11.0 Hypertensive heart disease with heart failure; I50.9 Heart failure, unspecified; B96.20 Unspecified Escherichia coli [E. coli] as the cause of diseases classified elsewhere; K29.70 Gastritis, unspecified, without bleeding; E78.5 Hyperlipidemia, unspecified; F20.9 Schizophrenia, unspecified; Z88.0 Allergy status to penicillin; Z79.82 Long term (current) use of aspirin; M81.0 Age-related osteoporosis without current pathological fracture; J44.9 Chronic obstructive pulmonary disease, unspecified
CPT/HCPCS: 36415; 71045; 80048; 80053; 80202; 81003; 82164; 82550; 82962; 83605; 83880; 84484; 85007; 85025; 85610; 85730; 86738; 86850; 86900; 86901; 87040; 87081; 87086; 87181; 93005; 94003; 94150; 94640; 94664; 94760; 96361; 96365; 96368; 99285; J1815